=== PATIENT | female | born 1930 | race Caucasian/White ===

== ENCOUNTER 2019-06-28 09:00 | Inpatient (IN) | payer MEDICARE, BC ==
[2019-06-28 09:40] LABS: Basophils % (A) 0 %; Eosinophils # (A) 0.1 k/uL (0-0.7); Eosinophils % (A) 1 %; HCT 33.9 % (34.0-46.0); HGB 10.8 gm/dL (11.4-16.0); Hypochromasia Slight; Lymphocytes # (A) 0.5 k/uL (1.0-4.8); Lymphocytes % (A) 4 %; MCH 26.9 pg (25.0-35.0); MCHC 31.9 g/dL (31.0-37.0); MCV 84.2 fL (80.0-100.0); Mean Platelet Volume 7.2; Monocytes # (A) 0.4 k/uL (0-1.0); Monocytes % (A) 3 %; Neutrophils # (A) 11.6 k/uL (1.3-7.7); Neutrophils % (A) 91 %; Platelet Count 334 k/uL (150-450); RBC 4.03 m/uL (3.80-5.40); RDW 15.7 % (11.5-15.5); WBC 12.8 k/uL (3.8-10.6)
[2019-06-28 09:49] LABS: Albumin 4.1 g/dL (3.5-5.0); Calcium 8.7 mg/dL (8.4-10.2); Total Bilirubin 0.9 mg/dL (0.2-1.3); Total Protein 8.1 g/dL (6.3-8.2)
[2019-06-28] MEDS ORDERED: SODIUM CHLORIDE 0.9% 1,000 ML IV STA (10:00)
[2019-06-28] MEDS ORDERED: SODIUM CHLORIDE 0.9% 500 ML 500 ML IV STA (10:00)
--- NOTE | 2019-06-28 10:04 | ED ---
Fall HPI - General Chief Complaint: Fall Stated Complaint: fall Time Seen by Provider: 06/28/19 09:00 Source: patient, RN notes reviewed, old records reviewed Mode of arrival: EMS - History of Present Illness Initial Comments: This 88-year-old female was brought in by EMS for evaluation after a fall with complaints of left flank and back pain as well as some hip pain. She currently denies any other injuries head neck or extremity discomfort. She was brought in with a cervical collar in place as she had no head or neck injury to report. She does state that she felt dizzy and lost her balance and fell the floor but states she got up immediately up and back to bed but this morning she complains of the pain in the areas described. She was able ambulate. No fevers chills nausea vomiting sweats no dysuria hematuria of note she was found have a mildly elevated temperature upon arrival MD Complaint: fall, other - Related Data Home Medications Medication Instructions Recorded Confirmed Acetaminophen [Tylenol] 650 mg PO BID@0930,1900 06/28/19 06/28/19 Aspirin [[place] Aspirin EC] 81 mg PO DAILY@182906/28/19 06/28/19 Emlodipine 50mg 1 tab PO DAILY 06/28/19 06/28/19 Hydrochlorothiazide (Unknown) 1 tab PO DAILY 06/28/19 06/28/19 Imdur (Unknown) 1 tab PO DAILY 06/28/19 06/28/19 Levothyroxine Sodium 88 mcg PO DAILY 06/28/19 06/28/19 Mirabegron [Myrbetriq] 25 mg PO HS 06/28/19 06/28/19 Multivitamins, Thera [Multivitamin 1 tab PO DAILY@182906/28/19 06/28/19 (formulary)] Nebivolol HCl [Bystolic] 10 mg PO DAILY@182906/28/19 06/28/19 Omeprazole 40 mg PO DAILY@109906/28/19 06/28/19 Potassium Chloride [K-Tab ER] 10 meq PO DAILY@1100 06/28/19 06/28/19 Pravachol (Unknown) 1 tab PO DAILY 06/28/19 06/28/19 Proline (Unknown) 2 injection IM Q6M 06/28/19 06/28/19 Tylenol #3 (Unknown) 1 tab PO DAILY 06/28/19 06/28/19 Vitamin D 3 (Mg Unknown) 1 tab PO DAILY@1830 06/28/19 06/28/19 amLODIPine [Norvasc] 5 mg PO BID@1100,1900 06/28/19 06/28/19 hydrALAZINE HCL [Apresoline] 50 mg PO TID 06/28/19 06/28/19 rOPINIRole HCL [Requip] 1 mg PO DAILY@1100 06/28/19 06/28/19 rOPINIRole HCL [Requip] 2 mg PO HS 06/28/19 06/28/19 Allergies Allergy/AdvReac Type Severity Reaction Status Date / Time No Known Allergies Allergy Unverified 06/28/19 09:03 Review of Systems ROS Statement: Those systems with pertinent positive or pertinent negative responses have been documented in the HPI. ROS Other: All systems not noted in ROS Statement are negative. Past Medical History Past Medical History: Chest Pain / Angina, GERD/Reflux, Hypertension Additional Past Medical History / Comment(s): restless leg History of Any Multi-Drug Resistant Organisms: None Reported Past Surgical History: Appendectomy Past Psychological History: No Psychological Hx Reported Smoking Status: Never smoker Past Alcohol Use History: None Reported Past Drug Use History: None Reported General Exam - General Exam Comments Initial Comments: This is a well-developed well-nourished awake alert oriented history female with a [place] Coma Scale of 15 Limitations: no limitations General appearance: alert, in no apparent distress Head exam: Present: atraumatic, normocephalic, normal inspection Eye exam: Present: normal appearance, PERRL, EOMI. Absent: scleral icterus, conjunctival injection, periorbital swelling ENT exam: Present: mucous membranes dry Neck exam: Present: normal inspection. Absent: tenderness, meningismus, lymphadenopathy Respiratory exam: Present: normal lung sounds bilaterally. Absent: respiratory distress, wheezes, rales, rhonchi, stridor Cardiovascular Exam: Present: irregular rhythm, normal heart sounds. Absent: systolic murmur, diastolic murmur, rubs, gallop, clicks GI/Abdominal exam: Present: soft, normal bowel sounds. Absent: distended, tenderness, guarding, rebound, rigid Rectal exam: Present: deferred Extremities exam: Present: normal inspection, full ROM, tenderness (Some tenderness palpation over both hips no step-off crepitation no shortening or rotation.), normal capillary refill. Absent: pedal edema, joint swelling, calf tenderness Back exam: Present: normal inspection, full ROM, tenderness, paraspinal tenderness (Tenderness palpation over the paraspinous muscles (left to the mid and lower thoracic upper lumbar region. No definite spinous process tenderness.). Absent: CVA tenderness (R), CVA tenderness (L) Neurological exam: Present: alert, oriented X3, CN II-XII intact Psychiatric exam: Present: normal affect, normal mood Skin exam: Present: warm, dry, intact, normal color. Absent: rash Course Vital Signs 06/28/19 06/28/19 06/28/19 09:02 09:07 09:30 Temperature 100.3 F H Pulse Rate 90 92 93 Respiratory 18 38 H 56 H Rate Blood Pressure 150/64 150/64 O2 Sat by Pulse 92 L Oximetry 06/28/19 06/28/19 06/28/19 10:00 10:30 11:00 Temperature Pulse Rate 92 93 96 Respiratory 31 H 19 35 H Rate Blood Pressure 160/61 157/68 154/72 O2 Sat by Pulse 95 92 L 90 L Oximetry 06/28/19 06/28/19 06/28/19 11:30 11:32 11:42 Temperature Pulse Rate 98 96 99 Respiratory 34 H Rate Blood Pressure 153/78 O2 Sat by Pulse 86 L Oximetry 06/28/19 06/28/19 12:00 12:30 Temperature 101.0 F H Pulse Rate 101 H 100 Respiratory 36 H 36 H Rate Blood Pressure 169/59 152/76 O2 Sat by Pulse 86 L 89 L Oximetry - Reevaluation(s) Reevaluation #1: 06/28/19 11:17 Further information after family arrived the patient daughter states she's been having some difficulty with breathing lately she is a former smoker but no diagnosis of COPD. Reevaluation #2: 06/28/19 13:09 Was given a DuoNeb treatment due to some shortness of breath and diminished breath sounds occurred after initial evaluation she was feeling better Medical Decision Making - Medical Decision Making Patient is case was discussed with her and her daughter as well as with Dr. Chavez. Presentation is consistent with a lung mass as well as a fall, fever due to the findings a pneumonia is considered - Lab Data Result diagrams: 06/28/19 09:23 06/28/19 09:23 Lab Results 06/28/19 06/28/19 06/28/19 Range/Units 09:23 09:23 09:23 WBC 12.8 H (3.8-10.6) k/uL RBC 4.03 (3.80-5.40) m/uL Hgb 10.8 L (11.4-16.0) gm/dL Hct 33.9 L (34.0-46.0) % MCV 84.2 (80.0-100.0) fL MCH 26.9 (25.0-35.0) pg MCHC 31.9 (31.0-37.0) g/dL RDW 15.7 H (11.5-15.5) % Plt Count 334 (150-450) k/uL Neutrophils % 91 % Lymphocytes % 4 % Monocytes % 3 % Eosinophils % 1 % Basophils % 0 % Neutrophils # 11.6 H (1.3-7.7) k/uL Lymphocytes # 0.5 L (1.0-4.8) k/uL Monocytes # 0.4 (0-1.0) k/uL Eosinophils # 0.1 (0-0.7) k/uL Basophils # 0.0 (0-0.2) k/uL Hypochromasia Slight Sodium 135 L (137-145) mmol/L Potassium 4.0 (3.5-5.1) mmol/L Chloride 98 (98-107) mmol/L Carbon Dioxide 18 L (22-30) mmol/L Anion Gap 19 mmol/L BUN 30 H (7-17) mg/dL Creatinine 0.92 (0.52-1.04) mg/dL Est GFR (CKD-EPI)AfAm 65 (>60 ml/min/1.73 sqM) Est GFR (CKD-EPI)NonAf 56 (>60 ml/min/1.73 sqM) Glucose 126 H (74-99) mg/dL Plasma Lactic Acid Mele 1.4 (0.7-2.0) mmol/L Calcium 8.7 (8.4-10.2) mg/dL Magnesium 2.0 (1.6-2.3) mg/dL Total Bilirubin 0.9 (0.2-1.3) mg/dL AST 28 (14-36) U/L ALT 15 (9-52) U/L Alkaline Phosphatase 68 (38-126) U/L Creatine Kinase 201 H (30-135) U/L Total Protein 8.1 (6.3-8.2) g/dL Albumin 4.1 (3.5-5.0) g/dL Lipase 78 (23-300) U/L Urine Color Urine Appearance (Clear) Urine pH (5.0-8.0) Ur Specific [place] (1.001-1.035) Urine Protein (Negative) Urine Glucose (UA) (Negative) Urine Ketones (Negative) Urine Blood (Negative) Urine Nitrite (Negative) Urine Bilirubin (Negative) Urine Urobilinogen (<2.0) mg/dL Ur Leukocyte Esterase (Negative) Urine RBC (0-5) /hpf Amorphous Sediment (None) /hpf Urine Mucus (None) /hpf 06/28/19 Range/Units 10:23 WBC (3.8-10.6) k/uL RBC (3.80-5.40) m/uL Hgb (11.4-16.0) gm/dL Hct (34.0-46.0) % MCV (80.0-100.0) fL MCH (25.0-35.0) pg MCHC (31.0-37.0) g/dL RDW (11.5-15.5) % Plt Count (150-450) k/uL Neutrophils % % Lymphocytes % % Monocytes % % Eosinophils % % Basophils % % Neutrophils # (1.3-7.7) k/uL Lymphocytes # (1.0-4.8) k/uL Monocytes # (0-1.0) k/uL Eosinophils # (0-0.7) k/uL Basophils # (0-0.2) k/uL Hypochromasia Sodium (137-145) mmol/L Potassium (3.5-5.1) mmol/L Chloride (98-107) mmol/L Carbon Dioxide (22-30) mmol/L Anion Gap mmol/L BUN (7-17) mg/dL Creatinine (0.52-1.04) mg/dL Est GFR (CKD-EPI)AfAm (>60 ml/min/1.73 sqM) Est GFR (CKD-EPI)NonAf (>60 ml/min/1.73 sqM) Glucose (74-99) mg/dL Plasma Lactic Acid Mele (0.7-2.0) mmol/L Calcium (8.4-10.2) mg/dL Magnesium (1.6-2.3) mg/dL Total Bilirubin (0.2-1.3) mg/dL AST (14-36) U/L ALT (9-52) U/L Alkaline Phosphatase (38-126) U/L Creatine Kinase (30-135) U/L Total Protein (6.3-8.2) g/dL Albumin (3.5-5.0) g/dL Lipase (23-300) U/L Urine Color Yellow Urine Appearance Clear (Clear) Urine pH 5.5 (5.0-8.0) Ur Specific [place] 1.019 (1.001-1.035) Urine Protein 2+ H (Negative) Urine Glucose (UA) Negative (Negative) Urine Ketones 2+ H (Negative) Urine Blood Moderate H (Negative) Urine Nitrite Negative (Negative) Urine Bilirubin Negative (Negative) Urine Urobilinogen <2.0 (<2.0) mg/dL Ur Leukocyte Esterase Negative (Negative) Urine RBC 12 H (0-5) /hpf Amorphous Sediment Occasional H (None) /hpf Urine Mucus Rare H (None) /hpf - EKG Data -: EKG Interpreted by Ct EKG shows normal: sinus rhythm (Sinus rhythm first-degree AV block PVCs noted rate was 93To 40 [place] duration 86 QT since QTC 364/452) - Radiology Data Radiology results: report reviewed (Left lung mass), image reviewed Disposition Clinical Impression: Fall, Pneumonia, Lung mass, Dehydration, Bronchospasm, acute, Febrile illness, acute Disposition: ADMITTED IP TO THIS HOSP Condition: Fair Referrals: Sundeep Hauser MD [Primary Care Provider] - 1-2 days
--- NOTE | 2019-06-28 10:08 | XR ---
EXAMINATION TYPE: XR lumbosacral spine min 4V , 5 VIEWS DATE OF EXAM ORDERED: 06/28/2019 HISTORY: Pain following trauma. COMPARISON: None. FINDINGS: The bones are osteopenic, likely on the basis of osteoporosis. Vertebral body heights maintained. There is a minimal, degenerative spondylolisthesis of L4 and L5. A lignment is otherwise normal. No fractures are seen. There is mild, diffuse facet arthropathy. The pe dicles are intact. IMPRESSION: 1. NO ACUTE OSSEOUS LESION. 2. DEGENERATIVE CHANGE.
--- NOTE | 2019-06-28 10:09 | XR ---
EXAMINATION TYPE: XR Hip Bilateral and AP pelvis , 5 VIEWS DATE OF EXAM ORDERED: 06/28/2019 HISTORY: Pain. COMPARISON: None. FINDINGS: Osseous structures about the pelvis are unremarkable. There are degenerative changes prese nt in both hips. No fracture or dislocation is seen. There are phleboliths within the pelvis. IMPRESSION: 1. NO ACUTE OSSEOUS LESION. 2. DEGENERATIVE CHANGE.
--- NOTE | 2019-06-28 10:11 | XR ---
EXAMINATION TYPE: XR thoracic spine complete , 3 VIEWS DATE OF EXAM ORDERED: 06/28/2019 HISTORY: Pain following trauma. COMPARISON: None. FINDINGS: The bones are osteopenic. There is moderate dextroscoliosis. The upper thoracic spine is not well seen in the lateral projection. Throughout the visualized portio n spine no acute fractures seen. The pedicles appear intact. Paraspinal soft tissues appear normal. IMPRESSION: LIMITED STUDY DEMONSTRATING NO DEFINITE ABNORMALITY.
--- NOTE | 2019-06-28 10:12 | XR ---
EXAMINATION TYPE: XR chest 2V DATE OF EXAM: 06/28/2019 HISTORY: cough. REFERENCE: NONE. FINDINGS: There is a 6.1 cm masslike density in the left lateral chest. Heart size upper limits of no rmal. The right lung is clear. Pleural space are clear. IMPRESSION: 1. CARDIOMEGALY. 2. 6.1 CM MASSLIKE DENSITY ADJACENT TO THE LATERAL CHEST WALL ON THE LEFT. CHEST BE SUGGESTED ON A NO NEMERGENT BASIS.
[2019-06-28 10:43] LABS: Amorphous Sediment,Urine Occasional /hpf; Appearance,Urine Clear (Clear); Bilirubin,Urine Negative (Negative); Blood,Urine Moderate (Negative); Color,Urine Yellow; Glucose,Urine (UA) Negative (Negative); Ketones,Urine 2+ (Negative); Leukocyte Esterase,Urine Negative (Negative); Mucus,Urine Rare /hpf; Nitrite,Urine Negative (Negative); PH, Urine 5.5 (5.0-8.0); Protein,Urine 2+ (Negative); RBC,Urine 12 /hpf (0-5); Specific Gravity,Urine 1.019 (1.001-1.035); Urobilinogen,Urine <2.0 mg/dL (<2.0)
[2019-06-28] MEDS ORDERED: IPRATROPIUM-ALBUTEROL 3 ML NEB INHALATION STA (11:17)
[2019-06-28] MEDS ORDERED: cefTRIAXone IN SWFI 1,000 MG/10 ML SYRINGE IVP STA (12:31)
[2019-06-28] MEDS ORDERED: ACETAMINOPHEN TAB 325 MG TAB PO STA (12:54)
[2019-06-28] MEDS ORDERED: AZITHROMYCIN 500 MG in SODIUM CHLORIDE 0.9% 250 ML IVPB STA (13:09)
[2019-06-28] MEDS ORDERED: PNEUMONIA PROTOCOL UTILIZED 1 EACH MISC PO PRN (13:09)
[2019-06-28] MEDS ORDERED: [UNRECOGNIZED DRUG - OTHER] IM SCH (13:15)
--- NOTE | 2019-06-28 13:21 | ED ---
Medical Decision Making - Medical Decision Making Patient does meet sepsis criteria to 2 findings of temperature and other findings of her lactic acid is within normal limits. Focused exam demonstrates patient to be awake alert oriented 3 after the updraft she does have increased aeration with some rhonchi noted. No definitive palpable chest wall mass noted. Capillary refills less than 2 seconds her saturation is improved skin is warm and dry. - Lab Data Result diagrams: 06/28/19 09:23 06/28/19 09:23 Lab Results 06/28/19 06/28/19 06/28/19 Range/Units 09:23 09:23 09:23 WBC 12.8 H (3.8-10.6) k/uL RBC 4.03 (3.80-5.40) m/uL Hgb 10.8 L (11.4-16.0) gm/dL Hct 33.9 L (34.0-46.0) % MCV 84.2 (80.0-100.0) fL MCH 26.9 (25.0-35.0) pg MCHC 31.9 (31.0-37.0) g/dL RDW 15.7 H (11.5-15.5) % Plt Count 334 (150-450) k/uL Neutrophils % 91 % Lymphocytes % 4 % Monocytes % 3 % Eosinophils % 1 % Basophils % 0 % Neutrophils # 11.6 H (1.3-7.7) k/uL Lymphocytes # 0.5 L (1.0-4.8) k/uL Monocytes # 0.4 (0-1.0) k/uL Eosinophils # 0.1 (0-0.7) k/uL Basophils # 0.0 (0-0.2) k/uL Hypochromasia Slight Sodium 135 L (137-145) mmol/L Potassium 4.0 (3.5-5.1) mmol/L Chloride 98 (98-107) mmol/L Carbon Dioxide 18 L (22-30) mmol/L Anion Gap 19 mmol/L BUN 30 H (7-17) mg/dL Creatinine 0.92 (0.52-1.04) mg/dL Est GFR (CKD-EPI)AfAm 65 (>60 ml/min/1.73 sqM) Est GFR (CKD-EPI)NonAf 56 (>60 ml/min/1.73 sqM) Glucose 126 H (74-99) mg/dL Plasma Lactic Acid Mele 1.4 (0.7-2.0) mmol/L Calcium 8.7 (8.4-10.2) mg/dL Magnesium 2.0 (1.6-2.3) mg/dL Total Bilirubin 0.9 (0.2-1.3) mg/dL AST 28 (14-36) U/L ALT 15 (9-52) U/L Alkaline Phosphatase 68 (38-126) U/L Creatine Kinase 201 H (30-135) U/L Total Protein 8.1 (6.3-8.2) g/dL Albumin 4.1 (3.5-5.0) g/dL Lipase 78 (23-300) U/L Urine Color Urine Appearance (Clear) Urine pH (5.0-8.0) Ur Specific [place] (1.001-1.035) Urine Protein (Negative) Urine Glucose (UA) (Negative) Urine Ketones (Negative) Urine Blood (Negative) Urine Nitrite (Negative) Urine Bilirubin (Negative) Urine Urobilinogen (<2.0) mg/dL Ur Leukocyte Esterase (Negative) Urine RBC (0-5) /hpf Amorphous Sediment (None) /hpf Urine Mucus (None) /hpf 06/28/19 Range/Units 10:23 WBC (3.8-10.6) k/uL RBC (3.80-5.40) m/uL Hgb (11.4-16.0) gm/dL Hct (34.0-46.0) % MCV (80.0-100.0) fL MCH (25.0-35.0) pg MCHC (31.0-37.0) g/dL RDW (11.5-15.5) % Plt Count (150-450) k/uL Neutrophils % % Lymphocytes % % Monocytes % % Eosinophils % % Basophils % % Neutrophils # (1.3-7.7) k/uL Lymphocytes # (1.0-4.8) k/uL Monocytes # (0-1.0) k/uL Eosinophils # (0-0.7) k/uL Basophils # (0-0.2) k/uL Hypochromasia Sodium (137-145) mmol/L Potassium (3.5-5.1) mmol/L Chloride (98-107) mmol/L Carbon Dioxide (22-30) mmol/L Anion Gap mmol/L BUN (7-17) mg/dL Creatinine (0.52-1.04) mg/dL Est GFR (CKD-EPI)AfAm (>60 ml/min/1.73 sqM) Est GFR (CKD-EPI)NonAf (>60 ml/min/1.73 sqM) Glucose (74-99) mg/dL Plasma Lactic Acid Mele (0.7-2.0) mmol/L Calcium (8.4-10.2) mg/dL Magnesium (1.6-2.3) mg/dL Total Bilirubin (0.2-1.3) mg/dL AST (14-36) U/L ALT (9-52) U/L Alkaline Phosphatase (38-126) U/L Creatine Kinase (30-135) U/L Total Protein (6.3-8.2) g/dL Albumin (3.5-5.0) g/dL Lipase (23-300) U/L Urine Color Yellow Urine Appearance Clear (Clear) Urine pH 5.5 (5.0-8.0) Ur Specific [place] 1.019 (1.001-1.035) Urine Protein 2+ H (Negative) Urine Glucose (UA) Negative (Negative) Urine Ketones 2+ H (Negative) Urine Blood Moderate H (Negative) Urine Nitrite Negative (Negative) Urine Bilirubin Negative (Negative) Urine Urobilinogen <2.0 (<2.0) mg/dL Ur Leukocyte Esterase Negative (Negative) Urine RBC 12 H (0-5) /hpf Amorphous Sediment Occasional H (None) /hpf Urine Mucus Rare H (None) /hpf Critical Care Time Critical Care Time: Yes Critical Care Time: 35 minutes of critical care time which was initial presentation with history physical labs x-rays old chart review muscle reevaluation the patient discussed with the patient family discussion with the admitting physician admission orders documentation the above Disposition Clinical Impression: Fall, Pneumonia, Lung mass, Dehydration, Bronchospasm, acute, Febrile illness, acute, Sepsis Disposition: ADMITTED IP TO THIS HOSP Condition: Fair Referrals: Sundeep Hauser MD [Primary Care Provider] - 1-2 days
[2019-06-28] MEDS ORDERED: RX INFO: IV CONTRAST WAS GIVEN 1 EACH MISC MISCELLANE PRN (13:45)
[2019-06-28] MEDS ORDERED: LEVOFLOXACIN 750MG-D5W PMX 750 MG in DEXTROSE/WATER 1 150ML.BAG IVPB STA (13:47)
--- NOTE | 2019-06-28 14:46 | CT ---
EXAMINATION TYPE: CT chest w con DATE OF EXAM: 06/28/2019 COMPARISON: NONE HISTORY: Lung mass CT DLP: 191.1 mGycm. Automated Exposure Control for Dose Reduction was Utilized. TECHNIQUE: CT scan of the thorax is performed following with IV Contrast, patient injected with 80 m L of Isovue 300. FINDINGS: LUNGS: There is a left upper lobe consolidation extending into the lingula with vessels coursing thro ughout this masslike consolidation. This measures up to 7.2 x 4.5 cm. This is measured on series 201 image 26. This extends to the hilum. This is low-density in comparison to the adjacent atelectasis in the left lower lobe. Scattered areas of atelectasis are seen throughout the remainder the lungs. MEDIASTINUM: The heart is enlarged. No pericardial effusion. Mediastinal adenopathy is seen with an a orticopulmonary window lymph node measuring 9 mm, precarinal lymph node measuring 1.1 cm, and subcari nal lymph node measuring 1.2 cm on short axis. OTHER: There is a small hiatal hernia. There are multiple hypoattenuated lesions in the spleen with t he largest characterize as a simple cyst measuring 1.2 cm. Some of the other lesions are too small to accurately characterize. These hypoattenuation of the hepatic parenchyma limits evaluation for hepat ic masses and most commonly relates to hepatic steatosis. Mild multilevel degenerative changes of the spine are seen. IMPRESSION: Low-density masslike consolidation in the left upper lobe and lingula has vessels coursin g throughout unaffected and may simply represent lobar pneumonia however an underlying mass is certai nly possible and short-term follow-up after treatment is recommended. Alternatively bronchoscopy coul d be considered as this mass extends to the hilum. Mild mediastinal adenopathy may be reactive.
[2019-06-28 14:56] VITALS: BMI 25.4
[2019-06-28] MEDS: SODIUM CHLORIDE 0.9% 1,000 ML IV SCH (15:34)
[2019-06-28] MEDS: IPRATROPIUM-ALBUTEROL 3 ML NEB INHALATION SCH ×3 (15:49→23:58)
[2019-06-28] MEDS ORDERED: LEVOFLOXACIN 750MG-D5W PMX 750 MG in DEXTROSE/WATER 1 150ML.BAG IVPB SCH ×2 (16:00→21:00)
[2019-06-28] MEDS ORDERED: PIPERACILLIN-TAZOBACTAM 3.375 GM in SODIUM CHLORIDE 0.9% 100 ML IVPB SCH (16:00)
[2019-06-28] MEDS: hydrALAZINE HCL 50 MG TAB PO SCH ×2 (16:24→20:58)
--- NOTE | 2019-06-28 16:28 | P.HPIM ---
History of Present Illness H&P Date: 06/28/19 The patient is a 88-year-old female with a PMH of hypertension who presented to the ED after a fall at home. History supplemented by her daughter at the bedside. The patient notes that she was in her usual state of health when she woke up this morning and feels that she got out of her bed too quickly when she suddenly became weak and fell down on her buttocks. She denied losing consciousness or any head trauma. The patient immediately got back up and was able to ambulate. EMS was subsequently activated and the patient was brought to the ED. The daughter states that over the previous few days, she has noted that her mother has been having some shortness of breath along with cough productive of yellow-green phlegm. Patient underwent an extensive evaluation in the ED with x-rays which revealed no acute fractures. Chest CT revealed a masslike consolidation in the left upper lobe and lingula with malignancy not ruled out. EKG revealed a sinus rhythm with first-degree AV block and APC at 93 bpm. I evaluation revealed a leukocytosis of 12.8, hemoglobin 10.8, platelets 334, sodium 135, potassium 4.0, BUN 30, creatinine 0.92, and CK 201. Patient was also noted to be febrile with T-max of 101. The patient was given IV antibiotics and was subsequently admitted to the medicine service for community acquired pneumonia. Review of Systems Pertinent positives and negatives as discussed in HPI, a complete review of systems was performed and all other systems are negative. Past Medical History Past Medical History: Chest Pain / Angina, GERD/Reflux, GI Bleed, Hypertension Additional Past Medical History / Comment(s): restless leg History of Any Multi-Drug Resistant Organisms: None Reported Past Surgical History: Appendectomy Past Anesthesia/Blood Transfusion Reactions: No Reported Reaction Past Psychological History: No Psychological Hx Reported Smoking Status: Never smoker Past Alcohol Use History: None Reported Past Drug Use History: None Reported - Past Family History Mother Family Medical History: Diabetes Mellitus Sister(s) Family Medical History: Cancer Medications and Allergies Home Medications Medication Instructions Recorded Confirmed Type Acetaminophen [Tylenol] 650 mg PO BID@0930,1900 06/28/19 06/28/19 History Aspirin [[place] Aspirin EC] 81 mg PO DAILY@1830 06/28/19 06/28/19 History Emlodipine 50mg 1 tab PO DAILY 06/28/19 06/28/19 History Hydrochlorothiazide (Unknown) 1 tab PO DAILY 06/28/19 06/28/19 History Imdur (Unknown) 1 tab PO DAILY 06/28/19 06/28/19 History Levothyroxine Sodium 88 mcg PO DAILY 06/28/19 06/28/19 History Mirabegron [Myrbetriq] 25 mg PO HS 06/28/19 06/28/19 History Multivitamins, Thera [Multivitamin 1 tab PO DAILY@1830 06/28/19 06/28/19 History (formulary)] Nebivolol HCl [Bystolic] 10 mg PO DAILY@1830 06/28/19 06/28/19 History Omeprazole 40 mg PO DAILY@1100 06/28/19 06/28/19 History Potassium Chloride [K-Tab ER] 10 meq PO DAILY@1100 06/28/19 06/28/19 History Pravachol (Unknown) 1 tab PO DAILY 06/28/19 06/28/19 History Proline (Unknown) 2 injection IM Q6M 06/28/19 06/28/19 History Tylenol #3 (Unknown) 1 tab PO DAILY 06/28/19 06/28/19 History Vitamin D 3 (Mg Unknown) 1 tab PO DAILY@1830 06/28/19 06/28/19 History amLODIPine [Norvasc] 5 mg PO BID@1100,1900 06/28/19 06/28/19 History hydrALAZINE HCL [Apresoline] 50 mg PO TID 06/28/19 06/28/19 History rOPINIRole HCL [Requip] 1 mg PO DAILY@1100 06/28/19 06/28/19 History rOPINIRole HCL [Requip] 2 mg PO HS 06/28/19 06/28/19 History Allergies Allergy/AdvReac Type Severity Reaction Status Date / Time No Known Allergies Allergy Unverified 06/28/19 09:03 Physical Exam Vitals: Vital Signs Temp Pulse Pulse Resp BP BP Pulse Ox 06/28/19 15:52 95 06/28/19 15:51 71 06/28/19 15:17 22 06/28/19 14:28 99.2 F 90 22 134/71 92 L 06/28/19 14:25 99.7 F H 93 23 157/64 92 L 06/28/19 14:06 99.7 F H 93 23 157/64 92 L 06/28/19 13:30 93 23 157/64 88 L 06/28/19 13:00 98 22 161/59 88 L 06/28/19 12:30 101.0 F H 100 36 H 152/76 89 L 06/28/19 12:00 101 H 36 H 169/59 86 L 06/28/19 11:42 99 06/28/19 11:32 96 06/28/19 11:30 98 34 H 153/78 86 L 06/28/19 11:00 96 35 H 154/72 90 L 06/28/19 10:30 93 19 157/68 92 L 06/28/19 10:00 92 31 H 160/61 95 06/28/19 09:30 93 56 H 150/64 92 L 06/28/19 09:07 92 38 H 06/28/19 09:02 100.3 F H 90 18 150/64 Intake and Output 06/28/19 06/28/19 06/28/19 06:59 14:59 22:59 Other: Weight 61.235 kg General: Somewhat Ill-appearing female, in mild respiratory distress, appears at stated age, normal weight Derm: no unusual rashes/lesions no unusual ecchymoses, warm, dry Head: atraumatic, normocephalic, symmetric Eyes: EOMI, no lid lag, anicteric sclera, pupils equal round reactive to light ENT: Nose and ears atraumatic, no thrush, no pharyngeal erythema Neck: No thyromegaly, no cervical lymphadenopathy, trachea midline, supple Mouth: no lip lesion, mucus membranes moist Cardiovascular: S1S2 reg, no murmur, positive posterior tibial pulse bilateral, no edema, capillary refill less than 2 seconds Lungs: Scattered ronchi, no accessory muscle use Abdominal: soft, nontender to palpation, no guarding, no appreciable organomegaly, normal bowel sounds Ext: no gross muscle atrophy, muscle strength 5 out of 5 in all 4 extremities grossly, no contractures, Neuro: CN II-XI grossly intact, light touch intact all 4 extremities, finger to nose within normal limits, Psych: Alert, oriented, appropriate affect Results CBC & Chem 7: 06/28/19 09:23 06/28/19 09:23 Labs: Abnormal Lab Results - Last 24 Hours (Table) 06/28/19 06/28/19 06/28/19 Range/Units 09:23 09:23 10:23 WBC 12.8 H (3.8-10.6) k/uL Hgb 10.8 L (11.4-16.0) gm/dL Hct 33.9 L (34.0-46.0) % RDW 15.7 H (11.5-15.5) % Neutrophils # 11.6 H (1.3-7.7) k/uL Lymphocytes # 0.5 L (1.0-4.8) k/uL Sodium 135 L (137-145) mmol/L Carbon Dioxide 18 L (22-30) mmol/L BUN 30 H (7-17) mg/dL Glucose 126 H (74-99) mg/dL Creatine Kinase 201 H (30-135) U/L Urine Protein 2+ H (Negative) Urine Ketones 2+ H (Negative) Urine Blood Moderate H (Negative) Urine RBC 12 H (0-5) /hpf Amorphous Sediment Occasional H (None) /hpf Urine Mucus Rare H (None) /hpf Thrombosis Risk Factor Assmnt - Choose All That Apply Any of the Below Risk Factors Present?: No Other Risk Factors: No Each Risk Factor Represents 3 Points: Age 75 years or older Other congenital or acquired thrombophilia - If yes, enter type in comment: No Thrombosis Risk Factor Assessment Total Risk Factor Score: 3 Thrombosis Risk Factor Assessment Level: Very Low Risk Assessment and Plan Plan: Sepsis secondary to community acquired pneumonia -Continue with IV antibiotics -IV fluids -Supplemental oxygen Dehydration with Prerenal LUANNE -Continue with IV fluids -Trend CK Normocytic anemia -Obtain iron panel, B12, folate Hypertension -Continue with home meds DVT prophylaxis -Heparin The patient is admitted with an anticipated greater than 2 midnight stay for evaluation of sepsis secondary to community acquired pneumonia CODE STATUS:Full Code Discussed with: Patient, Daughter Anticipated discharge date: 2-[address]: Home A total of 45 minutes was spent on the care of this complex patient more than 50% of the time was spent in counseling and care coordination.
[2019-06-28] MEDS: ACETAMINOPHEN TAB 325 MG TAB PO SCH (17:59)
[2019-06-28] MEDS: NEBIVOLOL 5 MG TAB PO SCH (18:00)
[2019-06-28] MEDS: ASPIRIN 81 MG PO SCH (18:00)
[2019-06-28] MEDS: MULTIVITAMINS, THERA 1 EACH TAB PO SCH (18:00)
[2019-06-28] MEDS: amLODIPine 5 MG TAB PO SCH (18:01)
[2019-06-28] MEDS: NON FORMULARY DRUG (Mirabegron [Myrbetriq] 25 MG) PO SCH (21:00)
[2019-06-29] MEDS: HEPARIN SODIUM,PORCINE 5,000 UNIT/ML 1 ML VIAL SQ SCH ×4 (00:12→23:39)
[2019-06-29] MEDS: IPRATROPIUM-ALBUTEROL 3 ML NEB INHALATION SCH ×7 (00:39→23:12)
[2019-06-29] MEDS: SODIUM CHLORIDE 0.9% 1,000 ML IV SCH ×2 (04:58→12:59)
[2019-06-29] MEDS: LEVOTHYROXINE 88 MCG TAB PO SCH (06:39)
[2019-06-29] MEDS: ACETAMINOPHEN TAB 325 MG TAB PO SCH ×2 (06:48→18:38)
[2019-06-29] MEDS ORDERED: ACETAMINOPHEN TAB 325 MG TAB PO PRN (07:05)
[2019-06-29] MEDS ORDERED: VANCOMYCIN IV PER PHARMACY 1 EACH MISC MISCELLANE PRN (07:07)
[2019-06-29 07:47] LABS: Basophils % (A) 0 %; Eosinophils % (A) 0 %; HCT 29.7 % (34.0-46.0); HGB 9.4 gm/dL (11.4-16.0); Hypochromasia Slight; Lymphocytes # (A) 0.3 k/uL (1.0-4.8); Lymphocytes % (A) 4 %; MCH 26.7 pg (25.0-35.0); MCHC 31.8 g/dL (31.0-37.0); Mean Platelet Volume 7.1; Monocytes # (A) 0.2 k/uL (0-1.0); Monocytes % (A) 3 %; Neutrophils % (A) 91 %; Platelet Count 247 k/uL (150-450); RBC 3.53 m/uL (3.80-5.40); RDW 15.4 % (11.5-15.5); WBC 7.6 k/uL (3.8-10.6)
[2019-06-29 07:59] LABS: African American GFR (CKD) >90 (>60 ml/min/1.73 sqM); Anion Gap 12 mmol/L; Blood Urea Nitrogen 17 mg/dL (7-17); Calcium 7.6 mg/dL (8.4-10.2); Carbon Dioxide 20 mmol/L (22-30); Chloride 102 mmol/L (98-107); Creatine Kinase 260 U/L (30-135); Glucose 148 mg/dL (74-99); Non-African American GFR(CKD) 79 (>60 ml/min/1.73 sqM); Potassium 3.2 mmol/L (3.5-5.1); Sodium 134 mmol/L (137-145)
[2019-06-29] MEDS ORDERED: VANCOMYCIN 1,250 MG in SODIUM CHLORIDE 0.9% 250 ML IVPB ONE (08:00)
--- NOTE | 2019-06-29 08:04 | XR ---
EXAMINATION TYPE: XR chest 2V DATE OF EXAM: 06/29/2019 COMPARISON: Chest x-ray and CT chest from yesterday HISTORY: Pneumonia, progress study. TECHNIQUE: Frontal and lateral views of the chest are obtained. FINDINGS: There is persistent lateral left midlung masslike consolidation. There is worsening left b asilar airspace opacity. Tiny bilateral pleural effusions are present seen best on lateral view. Righ t lung remains clear. The cardiac silhouette size remains enlarged with atherosclerotic aorta. The osseous structures are demineralized. Underlying scoliotic curvature is present. IMPRESSION: Cardiomegaly with persistent lateral left midlung masslike consolidation and worsening le ft basilar acute infiltrate and/or atelectasis.
[2019-06-29] MEDS: PIPERACILLIN-TAZOBACTAM 3.375 GM in SODIUM CHLORIDE 0.9% 100 ML IVPB SCH ×3 (08:38→23:39)
[2019-06-29] MEDS: hydrALAZINE HCL 50 MG TAB PO SCH ×3 (08:38→22:29)
[2019-06-29] MEDS: PANTOPRAZOLE 40 MG TABLET PO SCH (08:38)
[2019-06-29] MEDS: amLODIPine 5 MG TAB PO SCH (08:51)
[2019-06-29] MEDS ORDERED: Acetaminophen-Codeine 300-30mg TAB PO PRN (09:00)
[2019-06-29] MEDS ORDERED: [UNRECOGNIZED DRUG - OTHER] PO SCH (09:00)
[2019-06-29] MEDS ORDERED: POTASSIUM CITRATE 10 MEQ TABLET.ER PO SCH (11:00)
[2019-06-29] MEDS ORDERED: POTASSIUM CHLORIDE ER 20 MEQ TAB.ER PO STA (12:36)
[2019-06-29] MEDS ORDERED: AZITHROMYCIN 500 MG TAB PO SCH (13:11)
[2019-06-29] MEDS ORDERED: amLODIPine 5 MG TAB PO SCH (13:22)
[2019-06-29] MEDS ORDERED: POTASSIUM CHLORIDE ER 10 MEQ TAB.ER.PRT PO SCH (13:28)
[2019-06-29] MEDS: ISOSORBIDE MONONITRATE ER 30 MG TAB.ER.24H PO SCH (13:29)
[2019-06-29] MEDS: HYDROCHLOROTHIAZIDE 12.5 MG CAP PO SCH (13:29)
--- NOTE | 2019-06-29 14:28 | P.PN ---
Subjective Progress Note Date: 06/29/19 The patient is a 88-year-old female with a PMH of hypertension who presented to the ED after a fall at home. History was supplemented by her daughter at the bedside. The patient notes that she was in her usual state of health when she woke up on the morning of presentation, felt that she got out of her bed too quickly when she suddenly became weak and fell down on her buttocks. She denied losing consciousness or any head trauma. The patient immediately got back up and was able to ambulate. EMS was subsequently activated and the patient was brought to the ED. The daughter stated that over the previous few days, she had noted that her mother had been having some shortness of breath along with cough productive of yellow-green phlegm. Patient underwent an extensive evaluation in the ED with x-rays which revealed no acute fractures. Chest CT revealed a masslike consolidation in the left upper lobe and lingula with malignancy not ruled out. EKG revealed a sinus rhythm with first-degree AV block and APC at 93 bpm. I evaluation revealed a leukocytosis of 12.8, hemoglobin 10.8, platelets 334, sodium 135, potassium 4.0, BUN 30, creatinine 0.92, and CK 201. Patient was also noted to be febrile with T-max of 101. The patient was given IV antibiotics and was subsequently admitted to the medicine service for lobar pneumonia, with plan to obtain f/u CT for further evaluation of mass. The patient was initially given Zosyn, Levaquin, Azithromycin, and Ceftriaxone in the ED. She was switched to Levaquin monotherapy upon admission. The patient's condition however worsened on 06/29/19. She was noted to be febrile in the am. Repeat CXR revealed worsening of the consolidation. Serum lactate was 1.3, from 1.4 on admission. Pulmonary and ID was consulted and the patient was placed on Vancomycin and Zosyn. The patient was seen and examined at the bedside @ 0710, 1000, and 1400. The pat ient was initially febrile and uncomfortable. The patient's nasal canula oxygen was increased and she was then transferred to the Selective unit. The patient then subsequently developed ronchi and her oxygen requirements increased. A repeat CXR is ordered. Discussed the patient's goals of care again with the daughter at the bedside. She noted that she is going to follow her mother's most recent wishes and maintain the patient as a Full-Code. Discussed the possibility of needing mechanical ventilation if patient's breathing continues to worsen. Discussed the case with Pulmonary. Objective - Vital Signs Vital signs: Vital Signs Temp 99.6 F 06/29/19 07:31 Pulse 80 06/29/19 11:49 Resp 16 06/29/19 07:31 BP 114/66 06/29/19 07:31 Pulse Ox 95 06/29/19 07:31 Intake & Output 06/28/19 06/29/19 06/29/19 18:59 06:59 18:59 Intake Total 200 Balance 200 Weight 61.235 kg Intake: Oral 200 Other: Voiding Method Diaper Diaper # Voids 1 1 # Bowel Movements 1 - Exam General: Ill appearing female, in mild-moderate resp distress, appears stated age, normal weight HEENT: NC/AT, anicteric sclerae, moist conjunctiva, no lid-lag, PERRLA Cardiovascular: S1/S2 wnl, no murmurs, rubs, or gallops Lungs: Diffuse ronchi, no rales, no accessory muscle use Abdominal: Soft, non-tender, non-distended, no guarding, rebound, or rigidity Skin: Warm, dry Extremities: No edema or contractures Psychiatric: Alert and oriented to person and place only, appropriate affect Neuro: CN II-XII grossly intact, no focal deficits, moving all extremities - Labs CBC & Chem 7: 06/29/19 07:16 06/29/19 07:06 Labs: Abnormal Lab Results - Last 24 Hours (Table) 06/29/19 06/29/19 Range/Units 07:06 07:16 RBC 3.53 L (3.80-5.40) m/uL Hgb 9.4 L (11.4-16.0) gm/dL Hct 29.7 L (34.0-46.0) % Lymphocytes # 0.3 L (1.0-4.8) k/uL Sodium 134 L (137-145) mmol/L Potassium 3.2 L (3.5-5.1) mmol/L Carbon Dioxide 20 L (22-30) mmol/L Glucose 148 H (74-99) mg/dL Calcium 7.6 L (8.4-10.2) mg/dL Creatine Kinase 260 H (30-135) U/L Microbiology - Last 24 Hours (Table) 06/28/19 09:10 Blood Culture - Preliminary Blood No Growth after 24 hours Assessment and Plan Plan: Sepsis secondary to community acquired pneumonia vs possibly post-obstructive pneumonia in setting of underlying mass -Abx coverage expanded to Vancomycin and Zosyn -IV fluids -Place patient on Airvo for oxygenation -Discussed case w/ Dr Drew. He recommended that patient may benefit from Bronchoscopy at a later date. Recommended to continue to monitor resp status while on Airvo -F/u blood cultures -Send sputum cultures Hypokalemia -Replaced -Monitor for now Dehydration with Prerenal LUANNE, resolved Normocytic anemia -Pending workup Hypertension -Hold meds in setting of worsening sepsis DVT prophylaxis -Heparin Discussed with: Patient, Daughter Anticipated discharge date: 3-[address]: Home A total of 60 minutes was spent on the care of this complex patient more than 50% of the time was spent in counseling and care coordination.
[2019-06-29] MEDS: NEBIVOLOL 5 MG TAB PO SCH (16:18)
--- NOTE | 2019-06-29 16:20 | P.CONS ---
History of Present Illness - Reason for Consult Consult date: 06/29/19 Pneumonia Requesting physician: Thelma Chavez - Chief Complaint fall out of the bed x 1 day - History of Present Illness Patient is 82 female who has been brought into the after pending the patient fell out of her bed and was complaining of some left flank and back pain, the patient says she felt dizzy and lost her balance and fell to the floor she says she cut up immediately and back into the bed but then started having this pain for which EMS was called in and the patient was brought into the ER on arrival to the ER the patient did have blood sugar 100.3 subsequently spike a fever of 10 1F patient have mild tachycardia of 90, patient did have extensive radiological workup including a chest x-ray we did shows car to megaly was 6.1 cm mass like density adjacent to the lateral chest wall on the left, Subsequently did have this chest CT we did shows low-density mass like consolidation in the left upper lobe and lingula with concern for her pneumonia underlying mass cannot be entirely excluded, patient did have blood and sputum cultures obtained which are currently pending she was initially given Rocephin and Zithromax subsequent started on Zosyn and infectious disease was consulted for further recommendation regarding antibiotic therapy. Patient main symptom remain to be increasing shortness of breath, even at rest the patient did have a cough. Minimal sputum production not sure about, patient denies having any chest pain no nausea no vomiting or choking on the food no abdominal pain and no diarrhea Review of Systems Positive point has been mentioned in the HPI rest of the systems are negative Past Medical History Past Medical History: Chest Pain / Angina, GERD/Reflux, GI Bleed, Hypertension Additional Past Medical History / Comment(s): restless leg History of Any Multi-Drug Resistant Organisms: None Reported Past Surgical History: Appendectomy Past Anesthesia/Blood Transfusion Reactions: No Reported Reaction Past Psychological History: No Psychological Hx Reported Smoking Status: Never smoker Past Alcohol Use History: None Reported Past Drug Use History: None Reported - Past Family History Mother Family Medical History: Diabetes Mellitus Sister(s) Family Medical History: Cancer Medications and Allergies Home Medications Medication Instructions Recorded Confirmed Type Acetaminophen [Tylenol] 650 mg PO BID@0930,1900 06/28/19 06/28/19 History Aspirin [[place] Aspirin EC] 81 mg PO DAILY@1830 06/28/19 06/28/19 History Levothyroxine Sodium 88 mcg PO DAILY 06/28/19 06/28/19 History Mirabegron [Myrbetriq] 25 mg PO HS 06/28/19 06/28/19 History Multivitamins, Thera [Multivitamin 1 tab PO DAILY@1830 06/28/19 06/28/19 History (formulary)] Nebivolol HCl [Bystolic] 10 mg PO DAILY@1830 06/28/19 06/28/19 History Omeprazole 40 mg PO DAILY@1100 06/28/19 06/28/19 History Potassium Chloride [K-Tab ER] 10 meq PO DAILY@1100 06/28/19 06/28/19 History hydrALAZINE HCL [Apresoline] 50 mg PO TID 06/28/19 06/28/19 History rOPINIRole HCL [Requip] 1 mg PO DAILY@1100 06/28/19 06/28/19 History rOPINIRole HCL [Requip] 2 mg PO HS 06/28/19 06/28/19 History Acetaminophen-Codeine 300-30mg 1 tab PO BID PRN 06/29/19 06/29/19 History [Tylenol w/codeine #3] Cholecalciferol [Vitamin D3 (25 1,000 units PO DAILY 06/29/19 06/29/19 History Mcg = 1000 Iu)] Hydrochlorothiazide 12.5 mg PO DAILY 06/29/19 06/29/19 History Isosorbide Mononitrate ER [Imdur] 30 mg PO DAILY 06/29/19 06/29/19 History Pravastatin Sodium [Pravachol] 20 mg PO DAILY 06/29/19 06/29/19 History amLODIPine [Norvasc] 5 mg PO DAILY 06/29/19 06/29/19 History Allergies Allergy/AdvReac Type Severity Reaction Status Date / Time No Known Allergies Allergy Unverified 06/28/19 09:03 Physical Exam Vitals: Vital Signs Temp Pulse Pulse Resp BP Pulse Ox 06/29/19 13:08 96 20 159/70 88 L 06/29/19 11:49 80 06/29/19 11:33 84 06/29/19 07:49 82 06/29/19 07:38 80 06/29/19 07:31 99.6 F 80 16 114/66 95 06/29/19 04:30 78 06/29/19 04:20 77 95 06/29/19 01:13 93 L 06/29/19 01:11 87 06/29/19 00:40 77 90 L 06/29/19 00:21 99.2 F 79 16 121/68 92 L 06/28/19 19:55 90 06/28/19 19:47 88 06/28/19 19:26 98.1 F 80 15 109/61 92 L 06/28/19 17:58 97.8 F 94 22 145/80 95 06/28/19 15:52 95 06/28/19 15:51 71 06/28/19 15:17 22 Intake and Output 06/28/19 06/29/19 06/29/19 22:59 06:59 14:59 Other: Voiding Method Diaper Diaper # Voids 1 1 1 # Bowel Movements 1 0 GENERAL DESCRIPTION: Elderly female lying in bed, no distress. No tachypnea or accessory muscle of respiration use. HEENT: Shows Pallor , no scleral icterus. Oral mucous membrane is dry. No pharyngeal erythema or thrush NECK: Trachea central, no thyromegaly. LUNGS: Unlabored breathing. Decreased this from the base. No wheeze or crackle. HEART: S1, S2, regular rate and rhythm. No loud murmur ABDOMEN: Soft, no tenderness , guarding or rigidity, no organomegaly EXTREMITIES: No edema of feet. SKIN: No rash, no masses palpable. NEUROLOGICAL: The patient is awake, alert, oriented x3, mood and affect normal. Results CBC & Chem 7: 06/29/19 07:16 06/29/19 07:06 Labs: Abnormal Lab Results - Last 24 Hours (Table) 06/29/19 06/29/19 Range/Units 07:06 07:16 RBC 3.53 L (3.80-5.40) m/uL Hgb 9.4 L (11.4-16.0) gm/dL Hct 29.7 L (34.0-46.0) % Lymphocytes # 0.3 L (1.0-4.8) k/uL Sodium 134 L (137-145) mmol/L Potassium 3.2 L (3.5-5.1) mmol/L Carbon Dioxide 20 L (22-30) mmol/L Glucose 148 H (74-99) mg/dL Calcium 7.6 L (8.4-10.2) mg/dL Creatine Kinase 260 H (30-135) U/L Microbiology - Last 24 Hours (Table) 06/28/19 09:10 Blood Culture - Preliminary Blood No Growth after 24 hours Assessment and Plan Assessment: 1-patient presented to the hospital with sepsis in this patient who did have a fever while tachycardia elevated white count source is likely left-sided pneumonia with a question of possible community-acquired however in view of the future possible malignancy with secondary postobstructive pneumonia cannot be entirely excluded will need to cover for both community-acquired As well as gram-negative pathogen (1) Pneumonia Current Visit: Yes Status: Acute Code(s): J18.9 - PNEUMONIA, UNSPECIFIED ORGANISM SNOMED Code(s): 978467836 (2) Sepsis Current Visit: Yes Status: Acute Code(s): A41.9 - SEPSIS, UNSPECIFIED ORGANISM SNOMED Code(s): 86914184 Plan: 1-Zosyn 3.375 g every 8 hour 2-gentle IV fluid We will follow on clinical condition and cultures to further adjust medication if needed Thank you for this consultation will follow this patient with you Time with Patient: Greater than 30
[2019-06-29 16:21] LABS: Ferritin 176.2 ng/mL (10.0-291.0)
--- NOTE | 2019-06-29 16:24 | CONS ---
CONSULTATION PULMONARY/CRITICAL CARE CONSULTATION: DATE OF SERVICE: 06/29/2019 This is an 88-year-old female who was brought into the emergency room by EMS. She apparently fell out of bed. She states that she apparently was trying to get out of bed to go use the bathroom. She complained of left flank and back pain as well as some hip pain. She apparently denied any other injuries, including head injuries or extremity injuries. The patient also complained of some chest congestion, cough and some phlegm production. The patient states that she has had chills as well. We were consulted because the chest x-ray showed significant consolidation in the left lung on chest x-ray. It appears to be pneumonia but could also be a mass. The patient is essentially a lifelong nonsmoker; maybe smoked 1 or 2 cigarettes when she was a teenager. The patient does admit to, as I mentioned, shortness of breath, cough, some phlegm production and some chills. She apparently was found to have an elevated temperature upon arrival to the emergency room. More recently, she was transferred up to the third floor, [address] [place] [address], because of increasing respiratory difficulty. We just saw her for evaluation. We looked at her chest x-ray. We also looked at her CT scan. MEDICATIONS: Her home medications are reviewed. They include: 1. Tylenol. 2. Baby aspirin. 3. Amlodipine. 4. Hydrochlorothiazide. 5. Imdur. 6. Levothyroxine. 7. Myrbetriq. 8. Multiple vitamins. 9. Bystolic. 10.Omeprazole. 11.Potassium tablets. 12.Pravachol. 13.Prolia injection every 6 months. 14.Tylenol Number 3. 15.Vitamin D3. 16.Hydralazine. 17.Requip. ALLERGIES: DENIED. MEDICAL HISTORY: Medical history includes: 1. Angina pectoris. 2. Gastroesophageal reflux disease. 3. Hypertension. 4. Hyperlipidemia. 5. Restless legs syndrome. 6. Hypothyroidism. 7. Urinary incontinence. SURGICAL HISTORY: Surgical history includes appendectomy. SOCIAL HISTORY: Positive for essentially being a lifelong nonsmoker. Denies any alcohol use. No illicit drug use. FAMILY HISTORY: Unremarkable. She states that her parents were relatively healthy. She is a reasonably good historian. REVIEW OF SYSTEMS: CONSTITUTIONAL: Chills. NEUROLOGIC: Negative. HEENT: Negative. CARDIOVASCULAR: Negative. PULMONARY: Shortness of breath, cough, some phlegm production. GI: Negative. : Negative. RHEUMATOLOGIC: Negative. IMMUNOLOGIC: Negative. ENDOCRINOLOGIC: Negative. DERMATOLOGIC: Negative. PHYSICAL EXAMINATION: VITAL SIGNS: Current vital signs are reviewed. Temperature is about 100 degrees. Heart rate is 80, respiratory rate 20, blood pressure 159/70, mean 99, and saturations are 88% on 15 L high flow. She appears to have some very mild shortness of breath. A bit of conversational dyspnea. She states that her breathing is "fine." HEENT: HEENT examination is grossly unremarkable. Nasal oxygen in place. NECK: Supple. Full range of motion. No adenopathy. Neck veins are flat. CARDIOVASCULAR: Cardiovascular examination reveals regular rhythm and rate. Heart rate about 85 to 90 beats per minute. S1, S2 normal. LUNGS: Lungs reveal some coarse bilateral rhonchi. Most of the rhonchi are left- sided. No wheezes or crackles. Breath sounds are diminished. ABDOMEN: Soft. Bowel sounds are heard. EXTREMITIES: Intact. No cyanosis, clubbing or edema. SKIN: Without rash. NEUROLOGIC: Neurologic examination is brief but nonfocal. She does appear to have a tremor. LAB DATA/IMAGING: Reviewed. White count 7.6, hemoglobin 9.4, hematocrit 29.7, platelet count 347,000. Sodium 134, potassium 3.2, chloride 102, CO2 20. Anion gap is 12. BUN and creatinine were 17 and 0.67. Urine yellow and clear; 2+ protein, 2+ ketones, moderate blood. Nitrite was negative. Leukocyte esterase was negative. Twelve RBCs, rare urine mucus. Chest x-ray shows some consolidative changes in the left lung. In the area on the left side there is infiltrate. The more recent chest x-ray shows persistent lateral left mid lung masslike consolidation with worsening infiltrate and atelectasis. The CT scan suggests the possibility of pneumonia versus mass. Microbiology thus far is negative. CURRENT MEDICATIONS: Current medications include: 1. Azithromycin. 2. Levaquin. 3. Zosyn. 4. Vancomycin. 5. Nebulizer treatments. ASSESSMENT: 1. Masslike infiltrate versus tumor, left mid lung. 2. Rule out left-sided pneumonia. 3. History of hypertension. 4. Hypothyroidism. 5. History of urinary incontinence. 6. History of gastroesophageal reflux disease. 7. History of hyperlipidemia. 8. History of angina pectoris. 9. Restless legs syndrome. PLAN: The patient's medications are appropriate. She is on good antibiotics. Will await culture data. We are aware of the patient. Should the patient have worsening respiratory status, we may need to move her up to the ICU. If her chest x-ray does not improve, we may consider bronchoscopy. MAUREEN / DONNA: [id number] / MTDD
[2019-06-29] MEDS: ASPIRIN 81 MG PO SCH (16:27)
[2019-06-29] MEDS: MULTIVITAMINS, THERA 1 EACH TAB PO SCH (16:27)
[2019-06-29] MEDS: PRAVASTATIN SODIUM 20 MG TAB PO SCH (16:27)
[2019-06-29 16:28] LABS: Folate, Serum 20.4 ng/mL; Iron Saturation 1.65 (12.00-45.00)
--- NOTE | 2019-06-29 17:19 | XR ---
EXAMINATION: XR chest 1V portable DATE AND TIME: 06/29/2019 4:49 PM CLINICAL INDICATION: PHH; pneumonia TECHNIQUE: AP portable upright COMPARISON: 06/29/2019 chest radiograph at 6:43 AM FINDINGS: LEFT HEMITHORAX: The near whiteout of the left hemithorax is redemonstrated, secondary to dense conso lidation throughout the left upper, mid and lower lung zones - with only the apex of the left upper l mayra zone inflated currently. Suspect left pleural effusion. There is no pneumothorax. RIGHT HEMITHORAX: Mild right infrahilar ill-defined added opacity noted, the vast bulk of the right l mayra parenchyma is clear and well expanded. The right pleural space remains negative. IMPRESSION: Overall similar lung inflation pattern and radiographic abnormalities when compared to the prior stud y at 6:43 AM today.
[2019-06-29] MEDS: NON FORMULARY DRUG (Mirabegron [Myrbetriq] 25 MG) PO SCH (20:40)
[2019-06-29] MEDS ORDERED: FUROSEMIDE 10 MG/ML 4 ML VIAL IV STA (21:53)
[2019-06-29] MEDS ORDERED: ALPRAZolam 0.25 MG TAB PO STA (22:10)
--- NOTE | 2019-06-29 22:13 | P.PN ---
Progress Note - Text Progress Note Date: 06/29/19 patient seen at bedside for increased work of breathing and hypoxemia, despite high flow nasal cannula will attempt BIPAP, and lasix, patient lungs breath sounds diminished on right side, with diffused rhonchorus breathing , distended jugular veins. oxygen sat improved with bipap from low 80s to 90% will attempt low dose xanax to help with anxiety while on bipap close monitoring and evaluation suspected fluid overload vs early ARDS from the infectious process continue with BIPAP and trial of lasix if this fails , will consider intubation RN updated on above plan
[2019-06-30] MEDS: IPRATROPIUM-ALBUTEROL 3 ML NEB INHALATION SCH ×6 (03:16→23:20)
[2019-06-30 06:38] LABS: HCT 37.2 % (34.0-46.0); Hypochromasia Slight; MCH 26.9 pg (25.0-35.0); MCHC 32.3 g/dL (31.0-37.0); MCV 83.4 fL (80.0-100.0); Mean Platelet Volume 7.1; Platelet Count 301 k/uL (150-450); RBC 4.46 m/uL (3.80-5.40); RDW 15.3 % (11.5-15.5); WBC 8.8 k/uL (3.8-10.6)
[2019-06-30 06:56] LABS: ALT 18 U/L (9-52); AST 35 U/L (14-36); African American GFR (CKD) >90 (>60 ml/min/1.73 sqM); Albumin 3.1 g/dL (3.5-5.0); Alkaline Phosphatase 69 U/L (38-126); Anion Gap 12 mmol/L; Blood Urea Nitrogen 15 mg/dL (7-17); Calcium 7.7 mg/dL (8.4-10.2); Carbon Dioxide 27 mmol/L (22-30); Chloride 100 mmol/L (98-107); Glucose 123 mg/dL (74-99); Non-African American GFR(CKD) 78 (>60 ml/min/1.73 sqM); Potassium 3.2 mmol/L (3.5-5.1); Sodium 139 mmol/L (137-145); Total Bilirubin 0.7 mg/dL (0.2-1.3); Total Protein 6.7 g/dL (6.3-8.2)
[2019-06-30] MEDS: LEVOTHYROXINE 88 MCG TAB PO SCH (07:09)
[2019-06-30] MEDS ORDERED: Potassium Replacement Protocol 1 EACH MISC MISCELLANE PRN (07:31)
[2019-06-30] MEDS: hydrALAZINE HCL 50 MG TAB PO SCH ×3 (08:12→20:07)
[2019-06-30] MEDS: ISOSORBIDE MONONITRATE ER 30 MG TAB.ER.24H PO SCH (08:13)
[2019-06-30] MEDS ORDERED: LEVOFLOXACIN 750 MG TAB PO SCH (09:00)
[2019-06-30] MEDS ORDERED: VANCOMYCIN 1,250 MG in SODIUM CHLORIDE 0.9% 250 ML IVPB SCH (09:00)
[2019-06-30] MEDS: HEPARIN SODIUM,PORCINE 5,000 UNIT/ML 1 ML VIAL SQ SCH ×3 (09:25→23:22)
[2019-06-30] MEDS: PIPERACILLIN-TAZOBACTAM 3.375 GM in SODIUM CHLORIDE 0.9% 100 ML IVPB SCH ×3 (09:25→23:22)
[2019-06-30] MEDS: PRAVASTATIN SODIUM 20 MG TAB PO SCH (09:28)
[2019-06-30] MEDS: ACETAMINOPHEN TAB 325 MG TAB PO SCH ×2 (09:28→18:50)
[2019-06-30] MEDS: PANTOPRAZOLE 40 MG TABLET PO SCH (09:28)
[2019-06-30] MEDS: HYDROCHLOROTHIAZIDE 12.5 MG CAP PO SCH (09:28)
--- NOTE | 2019-06-30 11:48 | P.PN ---
Subjective Progress Note Date: 06/30/19 Principal diagnosis: Masslike infiltrate versus tumor left midlung. This a very pleasant 88-year-old female patient who was admitted on 06/28/2019 and found to have a masslike consolidation versus tumor of the left midlung. We are consulted for the same. She was seen in consultation yesterday by Dr. Drew. She is seen again today in follow-up on the selective care unit. She is currently awake and alert. She did require BiPAP support last evening and was given a dose of Lasix with not much improvement. She is currently on 15 L high flow nasal cannula to maintain O2 saturations in the 90s. She's currently afebrile. Hemodynamically stable. Blood culture reveals no growth to date. Sputum culture pending. White count 8.8. Hemoglobin 12.0. Creatinine 0.68. She remains on vancomycin, Zosyn and Levaquin. Objective - Vital Signs Vital signs: Vital Signs Temp 98.4 F 06/30/19 11:29 Pulse 81 06/30/19 11:29 Resp 20 06/30/19 11:29 BP 125/58 06/30/19 11:29 Pulse Ox 91 L 06/30/19 11:29 Intake & Output 06/29/19 06/30/19 06/30/19 18:59 06:59 18:59 Intake Total 120 900 Balance 120 900 Intake: Intake, IV Titration 100 Amount Piperacillin-Tazobactam 3 100 .375 gm In Sodium Chloride 0.9% 100 ml @ 25 mls/hr IVPB Q8HR [facility] Rx# :[id number] Oral 120 800 Other: Voiding Method Diaper Diaper Diaper # Voids 1 2 # Bowel Movements 0 1 - Exam GENERAL EXAM: Alert, active, comfortable in mild respiratory distress. 15 L high flow nasal cannula. HEAD: Normocephalic. EYES: Normal reaction of pupils, equal size. NOSE: Clear with pink turbinates. THROAT: No erythema or exudates. NECK: No masses, no JVD. CHEST: No chest wall deformity. LUNGS: Equal air entry with scattered rhonchi more so on the left lung. CVS: S1 and S2 normal with no audible murmur, regular rhythm. ABDOMEN: No hepatosplenomegaly, normal bowel sounds, no guarding or rigidity. SPINE: No scoliosis or deformity SKIN: No rashes CENTRAL NERVOUS SYSTEM: No focal deficits, tone is normal in all 4 extremities. EXTREMITIES: There is no peripheral edema. No clubbing, no cyanosis. Peripheral pulses are intact. - Labs CBC & Chem 7: 06/30/19 05:53 06/30/19 05:53 Labs: Abnormal Lab Results - Last 24 Hours (Table) 06/29/19 06/30/19 Range/Units 07:03 05:53 Potassium 3.2 L (3.5-5.1) mmol/L Glucose 123 H (74-99) mg/dL Calcium 7.7 L (8.4-10.2) mg/dL Iron 4 L (50-170) ug/dL Iron Saturation 1.65 L (12.00-45.00) Albumin 3.1 L (3.5-5.0) g/dL Vitamin B12 1205.0 H (200.0-944.0) pg/mL Microbiology - Last 24 Hours (Table) 06/28/19 09:10 Blood Culture - Preliminary Blood No Growth after 48 hours 06/29/19 07:16 Blood Culture - Preliminary Blood No Growth after 24 hours 06/29/19 13:59 Gram Stain - Preliminary Sputum Assessment and Plan Assessment: Assessment: #1 Mass like infiltrate versus tumor the left midlung. Considering significant left-sided pneumonia. Currently on Zosyn, vancomycin and Levaquin. Sputum culture pending. #2 History of hypertension. #3 Hypothyroidism. #4 Urinary incontinence. #5 GERD. #6 Hyperlipidemia. #7 History of angina pectoris. #8 Restless leg syndrome. Plan: The patient was seen and evaluated by Dr. Drew. We'll continue with high flow oxygen at 15 L/m per nasal cannula. Continue his current antibiotics including Zosyn, vancomycin and Levaquin. ID is on the case. Sputum cultures pending. He did have a conversation with patient and family. She is a full code currently. We will have further discussion. Hopefully she'll start to improve. Maintaining O2 saturations greater than 88% will be acceptable. I, the cosigning physician, performed a history & physical examination of the patient. Lungs sounds scattered rhonchi more so on the left. Maintaining good O2 saturations in the 90s on 15 L high flow nasal cannula. I discussed the assessment and plan of care with my nurse practitioner, Felisha Randall. I attest to the above note as dictated by her.
--- NOTE | 2019-06-30 14:23 | P.PN ---
Subjective Progress Note Date: 06/30/19 Principal diagnosis: Pneumonia Patient was seen and examined. No acute events overnight. Saturating low 90s on 15 L high flow. Patient reports significant improvement in her breathing since admission but continues to complain of shortness of breath. She denies chest or palpitations. No nausea or vomiting. No fever or chills. Objective - Vital Signs Vital signs: Vital Signs Temp 98.4 F 06/30/19 11:29 Pulse 81 06/30/19 11:29 Resp 20 06/30/19 11:29 BP 125/58 06/30/19 11:29 Pulse Ox 91 L 06/30/19 11:29 Intake & Output 06/29/19 06/30/19 06/30/19 18:59 06:59 18:59 Intake Total 120 900 470 Balance 120 900 470 Intake: Intake, IV Titration 100 350 Amount Piperacillin-Tazobactam 3 100 100 .375 gm In Sodium Chloride 0.9% 100 ml @ 25 mls/hr IVPB Q8HR [facility] Rx# :[id number] Vancomycin 1,250 mg In 250 Sodium Chloride 0.9% 250 ml @ 125 mls/hr IVPB Q24H [facility] Rx#:[id number] Oral 120 800 120 Other: Voiding Method Diaper Diaper Diaper # Voids 1 2 2 # Bowel Movements 0 1 - Exam General: [non toxic], [no distress], [appears at stated age] Derm: [warm], [dry] Head: [atraumatic], [normocephalic], [symmetric] Eyes: [EOMI], [no lid lag], [anicteric sclera] Mouth: [no lip lesion], [mucus membranes moist] Cardiovascular: [S1S2 reg], [no murmur], [positive DP pulse bilateral] Lungs: [CTA bilateral], [rhonchi bilaterally] , [no accessory muscle use] Abdominal: [soft], [ nontender to palpation], [no guarding], [no appreciable organomegaly] Ext: [no gross muscle atrophy], [no edema], [no contractures] Neuro: [no focal neuro deficits] Psych: [Alert], [oriented], [appropriate affect] - Labs CBC & Chem 7: 06/30/19 05:53 06/30/19 05:53 Labs: Abnormal Lab Results - Last 24 Hours (Table) 06/29/19 06/30/19 Range/Units 07:03 05:53 Potassium 3.2 L (3.5-5.1) mmol/L Glucose 123 H (74-99) mg/dL Calcium 7.7 L (8.4-10.2) mg/dL Iron 4 L (50-170) ug/dL Iron Saturation 1.65 L (12.00-45.00) Albumin 3.1 L (3.5-5.0) g/dL Vitamin B12 1205.0 H (200.0-944.0) pg/mL Microbiology - Last 24 Hours (Table) 06/28/19 09:10 Blood Culture - Preliminary Blood No Growth after 48 hours 06/29/19 07:16 Blood Culture - Preliminary Blood No Growth after 24 hours 06/29/19 13:59 Gram Stain - Preliminary Sputum Assessment and Plan Assessment: Acute hypoxic respiratory failure Sepsis secondary to community-acquired pneumonia, concerns for postobstructive pneumonia Hypokalemia Hypertension Hypothyroidism Likely secondary to community-acquired pneumonia. As seen on chest x-ray, chest CT. Plans: Tylenol as needed for fever. Maintain O2 saturation greater than 88%. Continue levofloxacin and vancomycin and Zosyn for concerns of pneumonia. Follow pulmonology recommendations. DuoNeb as needed for shortness of breath or wheezing. Follow pulmonology recommendations. Follow blood cultures and sputum cultures. Follow chest x-ray tomorrow morning. Follow-up echocardiogram. Plans: Management as above. Follow ID consultation. Potassium 3.3. Plans: Replace via protocol. BP 125/58. Plans: Continue amlodipine, hydralazine, hydrochlorothiazide, Imdur, nebivolol. Monitor vitals, adjust medications as necessary. Plans: Continue Synthroid Patient admitted for community-acquired pneumonia. Continued on IV antibiotics. Low threshold for intubation. Pulmonology on board. Patient is full code at this time.
--- NOTE | 2019-06-30 15:45 | ECHOF ---
Referral Reason:SOB MEASUREMENTS -------- HEIGHT: 154.9 cm WEIGHT: 61.2 kg BP: 160/40 IVSd: 0.7 cm (0.6 - 1.1) LVIDd: 4.1 cm (3.9 - 5.3) LVPWd: 0.9 cm (0.6 - 1.1) IVSs: 0.8 cm LVIDs: 3.5 cm LVPWs: 0.9 cm LAESV Index (A-L): 26.46 ml/m Ao Diam: 2.3 cm (2.0 - 3.7) LA Diam: 3.0 cm (2.7 - 3.8) AV Cusp: 1.9 cm (1.5 - 2.6) EPSS: 2.4 cm MV E Silvano: 1.09 m/s MV DecT: 201 ms MV A Silvano: 1.20 m/s MV E/A Ratio: 0.91 AR PHT: 293 ms RAP: 5.00 mmHg RVSP: 48.34 mmHg MV EF SLOPE: 107.51 mm/s (70 - 150) MV EXCURSION: 15.18 mm (> 18.000) FINDINGS -------- Sinus rhythm. This was a technically good study. The left ventricular size is normal. Left ventricular wall thickness is normal. Overall left vent ricular systolic function is mild-moderately impaired with, an EF between 40 - 45 %. Basal anterose ptal LV wall motion is hypokinetic. Mid anteroseptal LV wall motion is hypokinetic. Septal Hypo kinesis The right ventricle is normal in size. Normal LA size by volume 22+/-6 ml/m2. The right atrial size is normal. Interatrial and interventricular septum intact. Aortic valve is trileaflet and is mildly thickened. Trace amount of aortic regurgitation. The mitral valve is normal. The mitral valve leaflets are mildly thickened. Mild mitral annular c alcification present. Mild mitral regurgitation is present. Severe tricuspid regurgitation present. There is moderate pulmonary hypertension. The right ventr icular systolic pressure, as measured by Doppler, is 48.34mmHg. There is no pulmonic regurgitation present. The aortic root size is normal. Normal inferior vena cava with normal inspiratory collapse consistent with estimated right atrial pre ssure of 5 mmHg. There is a trivial pericardial effusion present. CONCLUSIONS -------- 1. Sinus rhythm. 2. This was a technically good study. 3. The left ventricular size is normal. 4. Left ventricular wall thickness is normal. 5. Overall left ventricular systolic function is mild-moderately impaired with, an EF between 40 - 45 %. 6. Basal anteroseptal LV wall motion is hypokinetic. 7. Mid anteroseptal LV wall motion is hypokinetic. 8. Septal Hypokinesis 9. The right ventricle is normal in size. 10. Normal LA size by volume 22+/-6 ml/m2. 11. The right atrial size is normal. 12. Interatrial and interventricular septum intact. 13. Aortic valve is trileaflet and is mildly thickened. 14. Trace amount of aortic regurgitation. 15. The mitral valve is normal. 16. The mitral valve leaflets are mildly thickened. 17. Mild mitral annular calcification present. 18. Mild mitral regurgitation is present. 19. Severe tricuspid regurgitation present. 20. There is moderate pulmonary hypertension. 21. The right ventricular systolic pressure, as measured by Doppler, is 48.34mmHg. 22. There is no pulmonic regurgitation present. 23. The aortic root size is normal. 24. Normal inferior vena cava with normal inspiratory collapse consistent with estimated right atrial pressure of 5 mmHg. 25. There is a trivial pericardial effusion present. [employer] NETWORK ENGINEER: Bell Crisostomo RDCS
[2019-06-30] MEDS: NEBIVOLOL 5 MG TAB PO SCH (15:46)
[2019-06-30] MEDS: MULTIVITAMINS, THERA 1 EACH TAB PO SCH (18:49)
[2019-06-30] MEDS: ASPIRIN 81 MG PO SCH (18:49)
--- NOTE | 2019-06-30 19:00 | PN ---
PROGRESS NOTE DATE OF SERVICE: 06/30/2019 REASON FOR FOLLOWUP: Pneumonia. INTERVAL HISTORY: The patient is currently afebrile. The patient has been breathing comfortably compared to yesterday. The patient denies having any chest pain. Her cough has decreased in intensity and is less productive. No nausea, no vomiting, no abdominal pain and no diarrhea. PHYSICAL EXAMINATION: Blood pressure 120/57 with a pulse of 80, temperature 97.9. She is 91% on partial non- rebreather. General description is an elderly female lying in bed in no distress. RESPIRATORY SYSTEM: Unlabored breathing. Some coarse breath sounds in the bases bilaterally. No wheeze. HEART: S1, S2. Regular rate and rhythm. ABDOMEN: Soft. No tenderness. EXTREMITIES: No edema of the feet. LABS: Hemoglobin is 12 with a white count of 8.8. BUN of 15, creatinine of 0.68. Blood cultures have been negative so far. Sputum culture currently pending. DIAGNOSTIC IMPRESSION AND PLAN: Patient admitted to hospital after a fall in this patient who did have a fever and elevated white count with evidence of pneumonia on the left side. The patient is currently covered with Levaquin and Zosyn; to continue while waiting for the culture to finalize. Family at the bedside. Their questions were answered. MMODL / IJN: [id number] /
[2019-06-30] MEDS ORDERED: ALPRAZolam 0.25 MG TAB PO STA (19:51)
[2019-06-30] MEDS ORDERED: FUROSEMIDE 10 MG/ML 4 ML VIAL IV STA (19:51)
[2019-06-30] MEDS: NON FORMULARY DRUG (Mirabegron [Myrbetriq] 25 MG) PO SCH (20:07)
[2019-06-30] MEDS ORDERED: DIGOXIN 250 MCG TAB PO STA (21:04)
[2019-06-30 23:07] LABS: ABG Base Excess 5.6 mmol/L; ABG HCO3 28 mmol/L (21-25); ABG Oxygen Saturation 92.3 % (94-97); ABG PCO2 34 mmHg (35-45); ABG PH 7.53 (7.35-7.45); ABG TCO2 29 mmol/L (19-24); Allen Test Performed? Yes
[2019-06-30 23:16] LABS: Glucose,Whole Blood 133 mg/dL (75-99)
[2019-06-30 23:35] LABS: ABG PO2 58 mmHg (83-108)
[2019-06-30 23:37] LABS: Albumin 3.1 g/dL (3.5-5.0); Calcium 7.8 mg/dL (8.4-10.2); Potassium 3.3 mmol/L (3.5-5.1); Total Bilirubin 0.6 mg/dL (0.2-1.3); Total Protein 6.6 g/dL (6.3-8.2)
[2019-06-30 23:39] LABS: Basophils % (A) 0 %; Eosinophils # (A) 0.1 k/uL (0-0.7); Eosinophils % (A) 1 %; HCT 38.8 % (34.0-46.0); HGB 11.9 gm/dL (11.4-16.0); Hypochromasia Moderate; Lymphocytes # (A) 0.5 k/uL (1.0-4.8); Lymphocytes % (A) 5 %; MCH 26.4 pg (25.0-35.0); MCHC 30.7 g/dL (31.0-37.0); Mean Platelet Volume 7.4; Monocytes # (A) 0.2 k/uL (0-1.0); Monocytes % (A) 2 %; Neutrophils # (A) 8.8 k/uL (1.3-7.7); Neutrophils % (A) 91 %; Platelet Count 317 k/uL (150-450); RBC 4.51 m/uL (3.80-5.40); RDW 15.4 % (11.5-15.5); WBC 9.7 k/uL (3.8-10.6)
[2019-06-30 23:49] LABS: Glucose,Whole Blood 129 mg/dL (75-99)
--- NOTE | 2019-07-01 00:02 | XR ---
History: ITS.REASON XR Reason: Shortness of breath Exam: XR CXR 1 VIEW Comparison: 06/29/2019 FINDINGS: Moderate to severe interval worsening of right perihilar ill-defined airspace opacity from the prior study. Persistent severe appearing patchy ill-defined perihilar opacity on the left. Some mild interval improved aeration at the left base suggested. IMPRESSION: Moderate to severe interval worsening of right perihilar ill-defined airspace opacity from the prior study. Persistent severe appearing patchy ill-defined perihilar opacity on the left. Some mild interval improved aeration at the left base suggested.
[2019-07-01] MEDS: POTASSIUM CHLORIDE 10 MEQ in WATER FOR INJECTION 1 100ML.BAG IVPB SCH ×4 (00:06→04:01)
[2019-07-01] MEDS ORDERED: NALOXONE 0.4 MG/ML 1 ML VIAL IV PRN (00:36)
[2019-07-01 01:41] LABS: Appearance,Urine Clear (Clear); Bacteria,Urine Rare /hpf; Bilirubin,Urine Negative (Negative); Blood,Urine Moderate (Negative); Color,Urine Yellow; Glucose,Urine (UA) Negative (Negative); Ketones,Urine Negative (Negative); Leukocyte Esterase,Urine Trace (Negative); Mucus,Urine Rare /hpf; Nitrite,Urine Negative (Negative); PH, Urine 5.5 (5.0-8.0); Protein,Urine Trace (Negative); RBC,Urine 77 /hpf (0-5); Specific Gravity,Urine 1.013 (1.001-1.035); Urobilinogen,Urine <2.0 mg/dL (<2.0); WBC,Urine 3 /hpf (0-5)
[2019-07-01] MEDS: IPRATROPIUM-ALBUTEROL 3 ML NEB INHALATION SCH (03:23)
[2019-07-01] MEDS ORDERED: DIGOXIN 125 MCG TAB PO ONE ×2 (04:00→05:00)
[2019-07-01 04:20] LABS: Basophils % (A) 0 %; Eosinophils % (A) 0 %; HCT 35.6 % (34.0-46.0); HGB 10.9 gm/dL (11.4-16.0); Hypochromasia Moderate; Lymphocytes # (A) 0.4 k/uL (1.0-4.8); Lymphocytes % (A) 5 %; MCH 25.8 pg (25.0-35.0); MCHC 30.5 g/dL (31.0-37.0); MCV 84.6 fL (80.0-100.0); Mean Platelet Volume 7.1; Monocytes # (A) 0.3 k/uL (0-1.0); Monocytes % (A) 3 %; Neutrophils % (A) 91 %; Platelet Count 311 k/uL (150-450); RBC 4.21 m/uL (3.80-5.40); RDW 15.4 % (11.5-15.5); WBC 8.8 k/uL (3.8-10.6)
[2019-07-01 04:30] LABS: Calcium 7.6 mg/dL (8.4-10.2); Phosphorus 1.3 mg/dL (2.5-4.5); Potassium 3.4 mmol/L (3.5-5.1)
[2019-07-01 04:51] VITALS: TEMP 99.2
[2019-07-01] MEDS ORDERED: ATROPINE OPHTH SOLN 1% 5ML BTL SUBLINGUAL PRN (04:52)
[2019-07-01] MEDS ORDERED: LORazepam 2 MG/ML INJ IV PRN (04:52)
[2019-07-01] MEDS ORDERED: MORPHINE SULFATE 4 MG/ML SYRINGE IV PRN (04:52)
[2019-07-01] MEDS ORDERED: SCOPOLAMINE 1.5MG/72HR PATCH TRANSDERM SCH (05:00)
[2019-07-01] MEDS: MORPHINE SULFATE 2 MG/ML SYRINGE IV PRN ×2 (05:41→06:23)
[2019-07-01 05:50] VITALS: BP 97/73
[2019-07-01] MEDS ORDERED: MORPHINE SULFATE (100 MG/2 ML) 100 MG in SODIUM CHLORIDE 0.9% 100 ML IV SCH (06:00)
[2019-07-01 06:10] VITALS: PULSE 108; RESP 42
--- NOTE | 2019-07-01 08:14 | PN ---
PROGRESS NOTE PULMONARY/CRITICAL CARE PROGRESS NOTE: DATE OF SERVICE: 07/01/2019 This is an 88-year-old female who was admitted back on June 28 with pneumonia and/or mass in the left lung. The patient was transferred to the ICU last night. Her respiratory status declined. Sometime early this morning the family apparently came in and made her a DO NOT RESUSCITATE. In ICU this morning, she is on BiPAP at 12 and 5 for IPAP and EPAP setting and 100% FiO2. She is getting saline IV at 10 mL an hour. Culture data thus far has been negative. Her blood gases on 80% showed a PO2 of 58, a pCO2 of 34, and pH of 7.53. Her FiO2 was bumped up from 80 to 100%. Currently, she is not doing well. Her work of breathing is quite substantial. Additional conversations with the family result in the family decided to make her a comfort measures only. She was on multiple antibiotics including Zosyn, vancomycin and Levaquin. She has a history of hypertension, hypothyroidism, urinary incontinence, GERD, hyperlipidemia, angina, and restless legs syndrome. I told the family that we would discontinue all unnecessary medications. Apply oxygen therapy, scopolamine patch, Ativan for anxiety and morphine for pain, should she require it. Obviously, we will do nothing to hasten her and just try to make the process of her passing comfortable. This is the family's wishes and these are the wishes of the patient, according to the family. PHYSICAL EXAMINATION: Current vital signs are reviewed. Her temperature is 99.2, her heart rate is 113, respiratory rate is 40, blood pressure 121/43, mean 69, saturations are 93% on 100% non- rebreather. HEENT: Examination is grossly unremarkable. Mucous membranes are dry. NECK: Supple. Full range of motion. No adenopathy, thyromegaly or neck vein distention. CARDIOVASCULAR examination reveals tachycardia. Heart rate about 115. It is regular. LUNGS: Reveal coarse rhonchi. Breath sounds are diminished. No crackles. No wheezes. ABDOMEN: Soft. Bowel sounds are not noted. EXTREMITIES: Intact. Minimal edema. SKIN: Without rash. NEUROLOGIC: Examination is nonfocal. She does move all 4 extremities. LAB DATA: From today includes a white count of 8.8, hemoglobin 10.9, hematocrit 35.6, platelet count 311,000. Sodium 138, potassium 3.4, chloride is 100, CO2 is 26, anion gap is 12. BUN and creatinine were 23 and 0.75. Lactic acid from yesterday was 2.1. It is 1.4 today. Her N terminal proBNP is 7,080. Microbiologic studies are pending. Medications are reviewed. Her chest x-ray from yesterday showed similar findings of diffuse infiltrates on the right lung and the right perihilar region and some patchy opacities on the left. Initially, the radiologist read her chest x-ray showing a possible mass in the left mid lung, left lower lobe area. This in fact could be a mass. It is hard to tell. ASSESSMENT: 1. Hypoxemic respiratory failure secondary to probable pneumonia bilaterally and possibly complicated by a mass in the left mid lung. 2. History of hypertension. 3. Hypothyroidism. 4. Urinary incontinence. 5. Gastroesophageal reflux disease. 6. Hyperlipidemia. 7. History of angina pectoris. 8. Restless legs syndrome. PLAN: The patient's family had decided to make her DNR last night. They also would prefer comfort measures at this point. I explained what that was. I told them that we will provide oxygen therapy, anxiolytics, and pain medications as needed. Nothing would be given to her hasten her . Additional recommendations and suggestions are forthcoming. The family is happy with this decision. The patient does not like BiPAP, the mask and wants it removed. This is appropriate. Additional recommendations and suggestions are forthcoming. Prognosis is obviously very poor. Will continue to follow. MMODL / IJN: [id number] /
--- NOTE | 2019-07-01 12:59 | P.PN ---
Subjective Progress Note Date: 07/01/19 Principal diagnosis: Acute hypoxic respiratory Patient was seen and examined. Worsening respiratory status overnight requiring BiPAP. Multiple family members are at bedside. Family and patient makes decision to pursue DNR/DNI at this time. Also went into A. fib. Started on digoxin. Comfort measure orders placed. Objective - Vital Signs Vital signs: Vital Signs Temp 99.2 F 07/01/19 04:00 Pulse 108 H 07/01/19 06:00 Resp 42 H 07/01/19 06:00 BP 97/73 07/01/19 05:30 Pulse Ox 82 L 07/01/19 06:00 Intake & Output 06/30/19 07/01/19 07/01/19 18:59 06:59 18:59 Intake Total 670 501.309 Output Total 670 Balance 670 -168.691 Weight 62.1 kg Intake: IV 500 Piperacillin-Tazobactam 3 100 .375 gm In Sodium Chloride 0.9% 100 ml @ 25 mls/hr IVPB Q8HR [facility] Rx# :[id number] Potassium Chloride 10 meq 400 In Water For Injection 1 100ml.bag @ 100 mls/hr IVPB Q1HR [facility] Rx#: [id number] Intake, IV Titration 350 1.309 Amount Morphine Sulfate (100 mg/ 1.309 2 ml) 100 mg In Sodium Chloride 0.9% 100 ml @ 1 MG/HR 1.02 mls/hr IV . Q24H [facility] Rx#:[id number] Piperacillin-Tazobactam 3 100 .375 gm In Sodium Chloride 0.9% 100 ml @ 25 mls/hr IVPB Q8HR [facility] Rx# :[id number] Vancomycin 1,250 mg In 250 Sodium Chloride 0.9% 250 ml @ 125 mls/hr IVPB Q24H [facility] Rx#:[id number] Oral 320 Output: Urine 670 Other: Voiding Method Diaper Indwelling Catheter Indwelling Catheter # Voids 2 1 # Bowel Movements 1 - Exam General: [non toxic], [no distress], [appears at stated age] Derm: [warm], [dry] Head: [atraumatic], [normocephalic], [symmetric] Patient is unresponsive. Vital signs show that patient is tachypneic and tachycardic requiring 15 L high flow NC. - Labs CBC & Chem 7: 07/01/19 04:02 08/07/19 04:02 Labs: Abnormal Lab Results - Last 24 Hours (Table) 06/30/19 06/30/19 06/30/19 Range/Units 23:04 23:05 23:09 Hgb (11.4-16.0) gm/dL MCHC (31.0-37.0) g/dL Neutrophils # (1.3-7.7) k/uL Lymphocytes # (1.0-4.8) k/uL D-Dimer (<0.60) mg/L FEU ABG pH 7.53 H (7.35-7.45) ABG pCO2 34 L (35-45) mmHg ABG pO2 58 L* (83-108) mmHg ABG HCO3 28 H (21-25) mmol/L ABG Total CO2 29 H (19-24) mmol/L ABG O2 Saturation 92.3 L (94-97) % Potassium 3.3 L (3.5-5.1) mmol/L BUN 23 H (7-17) mg/dL Glucose 140 H (74-99) mg/dL POC Glucose (mg/dL) 133 H (75-99) mg/dL Plasma Lactic Acid Mele (0.7-2.0) mmol/L Calcium 7.8 L (8.4-10.2) mg/dL Phosphorus (2.5-4.5) mg/dL AST 53 H (14-36) U/L Albumin 3.1 L (3.5-5.0) g/dL Urine Protein (Negative) Urine Blood (Negative) Ur Leukocyte Esterase (Negative) Urine RBC (0-5) /hpf Urine Bacteria (None) /hpf Urine Mucus (None) /hpf 06/30/19 06/30/19 06/30/19 Range/Units 23:17 23:17 23:17 Hgb (11.4-16.0) gm/dL MCHC 30.7 L (31.0-37.0) g/dL Neutrophils # 8.8 H (1.3-7.7) k/uL Lymphocytes # 0.5 L (1.0-4.8) k/uL D-Dimer 9.65 H (<0.60) mg/L FEU ABG pH (7.35-7.45) ABG pCO2 (35-45) mmHg ABG pO2 (83-108) mmHg ABG HCO3 (21-25) mmol/L ABG Total CO2 (19-24) mmol/L ABG O2 Saturation (94-97) % Potassium (3.5-5.1) mmol/L BUN (7-17) mg/dL Glucose (74-99) mg/dL POC Glucose (mg/dL) (75-99) mg/dL Plasma Lactic Acid Mele 2.1 H* (0.7-2.0) mmol/L Calcium (8.4-10.2) mg/dL Phosphorus (2.5-4.5) mg/dL AST (14-36) U/L Albumin (3.5-5.0) g/dL Urine Protein (Negative) Urine Blood (Negative) Ur Leukocyte Esterase (Negative) Urine RBC (0-5) /hpf Urine Bacteria (None) /hpf Urine Mucus (None) /hpf 06/30/19 07/01/19 07/01/19 Range/Units 23:38 01:15 04:02 Hgb 10.9 L (11.4-16.0) gm/dL MCHC 30.5 L (31.0-37.0) g/dL Neutrophils # 8.0 H (1.3-7.7) k/uL Lymphocytes # 0.4 L (1.0-4.8) k/uL D-Dimer (<0.60) mg/L FEU ABG pH (7.35-7.45) ABG pCO2 (35-45) mmHg ABG pO2 (83-108) mmHg ABG HCO3 (21-25) mmol/L ABG Total CO2 (19-24) mmol/L ABG O2 Saturation (94-97) % Potassium (3.5-5.1) mmol/L BUN (7-17) mg/dL Glucose (74-99) mg/dL POC Glucose (mg/dL) 129 H (75-99) mg/dL Plasma Lactic Acid Mele (0.7-2.0) mmol/L Calcium (8.4-10.2) mg/dL Phosphorus (2.5-4.5) mg/dL AST (14-36) U/L Albumin (3.5-5.0) g/dL Urine Protein Trace H (Negative) Urine Blood Moderate H (Negative) Ur Leukocyte Esterase Trace H (Negative) Urine RBC 77 H (0-5) /hpf Urine Bacteria Rare H (None) /hpf Urine Mucus Rare H (None) /hpf 07/01/19 Range/Units 04:02 Hgb (11.4-16.0) gm/dL MCHC (31.0-37.0) g/dL Neutrophils # (1.3-7.7) k/uL Lymphocytes # (1.0-4.8) k/uL D-Dimer (<0.60) mg/L FEU ABG pH (7.35-7.45) ABG pCO2 (35-45) mmHg ABG pO2 (83-108) mmHg ABG HCO3 (21-25) mmol/L ABG Total CO2 (19-24) mmol/L ABG O2 Saturation (94-97) % Potassium 3.4 L (3.5-5.1) mmol/L BUN 23 H (7-17) mg/dL Glucose 128 H (74-99) mg/dL POC Glucose (mg/dL) (75-99) mg/dL Plasma Lactic Acid Mele (0.7-2.0) mmol/L Calcium 7.6 L (8.4-10.2) mg/dL Phosphorus 1.3 L (2.5-4.5) mg/dL AST (14-36) U/L Albumin (3.5-5.0) g/dL Urine Protein (Negative) Urine Blood (Negative) Ur Leukocyte Esterase (Negative) Urine RBC (0-5) /hpf Urine Bacteria (None) /hpf Urine Mucus (None) /hpf Microbiology - Last 24 Hours (Table) 06/28/19 09:10 Blood Culture - Preliminary Blood No Growth after 72 hours 07/01/19 01:15 Urine Culture - Preliminary Urine,Catheterized 06/29/19 07:16 Blood Culture - Preliminary Blood No Growth after 48 hours 06/29/19 13:59 Gram Stain - Preliminary Sputum Sputum Culture - Preliminary Aspergillus species Assessment and Plan Assessment: Acute hypoxic respiratory failure Sepsis secondary to community-acquired pneumonia, concerns for postobstructive pneumonia Hypokalemia Hypertension Hypothyroidism Likely secondary to community-acquired pneumonia. As seen on chest x-ray, chest CT. Plans to pursue hospice, patient DNR/DNI. Plans: Consult hospice. Scopolamine and atropine for secretions. Morphine for air hunger. Plans: Management as above. Potassium 3.3-3.4. Plans: Plans to pursue comfort care. BP 97/73. Plans: Plans to pursue comfort care. Plans: Plans to pursue comfort care. Patient admitted for community-acquired pneumonia. DNR/DNI. Last pursue comfort care. Hospice consult placed for possible switch to inpatient hospice.
[2019-07-01] MEDS ORDERED: DIGOXIN 62.5 MCG TAB PO ONE (13:00)
--- NOTE | 2019-07-02 09:34 | P.DS ---
Providers Date of admission: 06/28/19 13:09 Expected date of discharge: 07/01/19 Attending physician: Thelma Chavez MD Consults: 06/29/19 13:20 Consult Physician Urgent Consulting Provider: Serafin Drew Consult Reason/Comments: pneumonia Do you want consulting provider notified?: Yes Primary care physician: Sundeep Palmer [facility] Course: The patient is a 88-year-old female with a PMH of hypertension who presented to the ED after a fall at home. The patient notes that she was in her usual state of health when she woke up on the morning of presentation, felt that she got out of her bed too quickly when she suddenly became weak and fell down on her buttocks. She denied losing consciousness or any head trauma. The patient immediately got back up and was able to ambulate. EMS was subsequently activated and the patient was brought to the ED. The daughter stated that over the previous few days, she had noted that her mother had been having some shortness of breath along with cough productive of yellow-green phlegm. Patient underwent an extensive evaluation in the ED with x-rays which revealed no acute fractures. Chest CT revealed a masslike consolidation in the left upper lobe and lingula with malignancy not ruled out. EKG revealed a sinus rhythm with first-degree AV block and APC at 93 bpm. Lab evaluation revealed a leukocytosis of 12.8, hemoglobin 10.8, platelets 334, sodium 135, potassium 4.0, BUN 30, creatinine 0.92, and CK 201. Patient was also noted to be febrile with T-max of 101. The patient was given IV antibiotics and was subsequently admitted to the medicine service for lobar pneumonia, with plan to obtain follow-up CT for further evaluation of mass. The patient was initially given Zosyn, Levaquin, Azithromycin, and Ceftriaxone in the ED. She was switched to Levaquin monotherapy upon admission. The patient's condition however worsened on 06/29/19. She was noted to be febrile in the am. Repeat CXR revealed worsening of the consolidation. Serum lactate was 1.3, from 1.4 on admission. Pulmonary and ID was consulted and the patient was placed on Vancomycin and Zosyn. Patient was treated for sepsis secondary to community acquired pneumonia with concerns of postobstructive pneumonia. She was on levofloxacin, vancomycin and Zosyn. She was given DuoNeb as needed for shortness of breath and wheezing. Pulmonology was consulted and followed the patient throughout her hospital course. Blood cultures were prelim negative at 72 hours. Sputum culture grew Aspergillus species. Patient had worsening of her respiratory status and required BiPAP, transferred to ICU on day 2. She went into A. fib and was started on digoxin scheduled. Family, along with the patient decided to pursue DNR/DNI at that time and patient was transitioned to comfort measures. Pertinent Studies: Chest CT, echocardiogram, chest x-ray, spine x-ray Patient Condition at Discharge: Stable Plan - Discharge Summary Discharge Rx Participant: No New Discharge Prescriptions: Discontinued Acetaminophen [Tylenol] 650 mg PO BID@0930,1900 Aspirin [[place] Aspirin EC] 81 mg PO DAILY@1830 hydrALAZINE HCL [Apresoline] 50 mg PO TID Levothyroxine Sodium 88 mcg PO DAILY Mirabegron [Myrbetriq] 25 mg PO HS Multivitamins, Thera [Multivitamin (formulary)] 1 tab PO DAILY@1830 Nebivolol HCl [Bystolic] 10 mg PO DAILY@1830 Omeprazole 40 mg PO DAILY@1100 Potassium Chloride [K-Tab ER] 10 meq PO DAILY@1100 rOPINIRole HCL [Requip] 2 mg PO HS rOPINIRole HCL [Requip] 1 mg PO DAILY@1100 Pravastatin Sodium [Pravachol] 20 mg PO DAILY Acetaminophen-Codeine 300-30mg [Tylenol w/codeine #3] 1 tab PO BID PRN PRN Reason: Pain Isosorbide Mononitrate ER [Imdur] 30 mg PO DAILY amLODIPine [Norvasc] 5 mg PO DAILY Hydrochlorothiazide 12.5 mg PO DAILY Cholecalciferol [Vitamin D3 (25 Mcg = 1000 Iu)] 1,000 units PO DAILY Follow up Appointment(s)/Referral(s): [facility], [NON-STAFF] - [facility], [NON-STAFF] - 1 Week Sundeep Hauser MD [Primary Care Provider] - 1-2 days Discharge Disposition: [facility]CH TO [facility]
--- NOTE | 2019-07-02 14:04 | CDI ---
Documentation Clarification Form Date: 07/02/19 From: Erin Landin Phone: If you have a question regarding this query, please contact Valentina Sebastian at [phone] between 8am and 5pm. Admit Date: 06/28/2019 1:09:00 PM Patient Name: Amanda Fairbanks Visit Number: [id number] Discharge Date: 07/01/2019 7:05:00 PM ATTENTION: The Clinical Documentation Specialists (CDI) and [facility] Coding Staff appreciate your assistance in clarifying documentation. Please respond to the clarification below the line at the bottom and electronically sign. The CDI & [facility] Coding staff will review the response and follow-up if needed. Please note: Queries are made part of the Legal Health Record. If you have any questions, please contact the author of this message via ITS. Dr. Vinayak Perez Atrial Fibrillation is documented in your 07/01 progress note and in the discharge summary. History/Risk Factors: Hypertension Clinical Indicators: Tachycardia EKG/telemetry: Telemetry on 07/01 showed atrial fibrillation with RVR Treatment: Started on digoxin In your professional opinion, can you please clarify the type of Atrial Fibrillation, if known? Chronic/Permanent Paroxysmal Persistent Other, please specify Unable to determine paroxysmal, patient developed while hospitalized MTDD
== END 2019-07-01 19:05 | disposition hospice, inpatient (51) | DRG 871 ==
LOC: EC 09:00 → 4SSUR 13:09 → 3SCARD 06-29 12:51 → 2SICU 06-30 23:29 → 4SSUR 07-01 10:14
PROVIDERS: ADMIT Internal Medicine; ATTEND Internal Medicine
DX: A41.9 Sepsis, unspecified organism (principal); J18.1 Lobar pneumonia, unspecified organism; J96.01 Acute respiratory failure with hypoxia; N17.9 Acute kidney failure, unspecified; E86.0 Dehydration; I48.0 Paroxysmal atrial fibrillation; R06.03 Acute respiratory distress; D64.9 Anemia, unspecified; E03.9 Hypothyroidism, unspecified; E78.5 Hyperlipidemia, unspecified; R91.8 Other nonspecific abnormal finding of lung field; E87.6 Hypokalemia; F41.9 Anxiety disorder, unspecified; G25.81 Restless legs syndrome; I10 Essential (primary) hypertension; I44.0 Atrioventricular block, first degree; J98.01 Acute bronchospasm; K21.9 Gastro-esophageal reflux disease without esophagitis; R32 Unspecified urinary incontinence; M25.559 Pain in unspecified hip; M54.9 Dorsalgia, unspecified; Z90.49 Acquired absence of other specified parts of digestive tract; Z79.899 Other long term (current) drug therapy; Z79.890 Hormone replacement therapy; Z79.82 Long term (current) use of aspirin; Z66 Do not resuscitate; Z51.5 Encounter for palliative care; Z83.3 Family history of diabetes mellitus; W06.XXXA Fall from bed, initial encounter; Y92.009 Unspecified place in unspecified non-institutional (private) residence as the place of occurrence of the external cause
CPT/HCPCS: 36415; 36600; 71045; 71046; 71260; 72072; 72110; 73521; 80048; 80053; 81001; 82550; 82607; 82728; 82746; 82805; 83540; 83550; 83605; 83690; 83735; 83880; 84100; 85025; 85027; 85379; 87040; 87070; 87086; 87205; 93005; 93306; 94640; 94660; 94760; 96361; 96374; 99291

== ENCOUNTER 2019-07-01 18:04 | Inpatient (IN) | payer MEDICAID ==
[2019-07-01] MEDS ORDERED: MORPHINE SULFATE 2 MG/ML SYRINGE IV PRN (18:13)
[2019-07-01] MEDS ORDERED: LORazepam 2 MG/ML INJ IV PRN (18:13)
[2019-07-01] MEDS ORDERED: ATROPINE OPHTH SOLN 1% 5ML BTL SUBLINGUAL PRN (18:13)
[2019-07-01] MEDS ORDERED: ACETAMINOPHEN SUPPOSITORY 650 MG SUPP RECTAL PRN (18:13)
[2019-07-01] MEDS ORDERED: ONDANSETRON 4 MG/2 ML VIAL IVP PRN (18:13)
[2019-07-01] MEDS ORDERED: MORPHINE SULFATE (100 MG/2 ML) 100 MG in SODIUM CHLORIDE 0.9% 100 ML IV SCH (18:15)
[2019-07-01] MEDS ORDERED: BISACODYL 10 MG SUPP RECTAL PRN (18:21)
[2019-07-01] MEDS ORDERED: MORPHINE SULFATE 100 MG in SODIUM CHLORIDE 0.9% 90 ML IV SCH (20:30)
[2019-07-02 00:44] VITALS: TEMP 100.3
--- NOTE | 2019-07-02 09:31 | P.HPIM ---
History of Present Illness H&P Date: 07/02/19 Chief Complaint: Acute hypoxic respiratory failure The patient is a 88-year-old female with a PMH of hypertension who presented to the ED after a fall at home. The patient notes that she was in her usual state of health when she woke up on the morning of presentation, felt that she got out of her bed too quickly when she suddenly became weak and fell down on her buttocks. She denied losing consciousness or any head trauma. The patient immediately got back up and was able to ambulate. EMS was subsequently activated and the patient was brought to the ED. The daughter stated that over the previous few days, she had noted that her mother had been having some shortness of breath along with cough productive of yellow-green phlegm. Patient underwent an extensive evaluation in the ED with x-rays which revealed no acute fractures. Chest CT revealed a masslike consolidation in the left upper lobe and lingula with malignancy not ruled out. EKG revealed a sinus rhythm with first-degree AV block and APC at 93 bpm. Lab evaluation revealed a leukocytosis of 12.8, hemoglobin 10.8, platelets 334, sodium 135, potassium 4.0, BUN 30, creatinine 0.92, and CK 201. Patient was also noted to be febrile with T-max of 101. The patient was given IV antibiotics and was subsequently admitted to the medicine service for lobar pneumonia, with plan to obtain follow-up CT for further evaluation of mass. The patient was initially given Zosyn, Levaquin, Azithromycin, and Ceftriaxone in the ED. She was switched to Levaquin monotherapy upon admission. The patient's condition however worsened on 06/29/19. She was noted to be febrile in the am. Repeat CXR revealed worsening of the consolidation. Serum lactate was 1.3, from 1.4 on admission. Pulmonary and ID was consulted and the patient was placed on Vancomycin and Zosyn. Patient was treated for sepsis secondary to community acquired pneumonia with concerns of postobstructive pneumonia. She was on levofloxacin, vancomycin and Zosyn. She was given DuoNeb as needed for shortness of breath and wheezing. Pulmonology was consulted and followed the patient throughout her hospital course. Blood cultures were prelim negative at 72 hours. Sputum culture grew Aspergillus species. Patient had worsening of her respiratory status and required BiPAP, transferred to ICU on day 2. She went into A. fib and was started on digoxin scheduled. Family, along with the patient decided to pursue DNR/DNI at that time and patient was transitioned to comfort measures. Review of Systems Patient unable to answer. Past Medical History Past Medical History: Chest Pain / Angina, GERD/Reflux, GI Bleed, Hypertension Additional Past Medical History / Comment(s): restless leg History of Any Multi-Drug Resistant Organisms: None Reported Past Surgical History: Appendectomy Past Anesthesia/Blood Transfusion Reactions: No Reported Reaction Past Psychological History: No Psychological Hx Reported Smoking Status: Never smoker Past Alcohol Use History: None Reported Past Drug Use History: None Reported - Past Family History Mother Family Medical History: Diabetes Mellitus Sister(s) Family Medical History: Cancer Medications and Allergies Home Medications Medication Instructions Recorded Confirmed Type Acetaminophen [Tylenol] 650 mg PO BID@0930,1900 06/28/19 07/01/19 History Aspirin [[place] Aspirin EC] 81 mg PO DAILY@18306/28/19 07/01/19 History Levothyroxine Sodium 88 mcg PO DAILY 06/28/19 07/01/19 History Mirabegron [Myrbetriq] 25 mg PO HS 06/28/19 07/01/19 History Multivitamins, Thera [Multivitamin 1 tab PO DAILY@18306/28/19 07/01/19 History (formulary)] Nebivolol HCl [Bystolic] 10 mg PO DAILY@1830 06/28/19 07/01/19 History Omeprazole 40 mg PO DAILY@1100 06/28/19 07/01/19 History Potassium Chloride [K-Tab ER] 10 meq PO DAILY@1100 06/28/19 07/01/19 History hydrALAZINE HCL [Apresoline] 50 mg PO TID 06/28/19 07/01/19 History rOPINIRole HCL [Requip] 1 mg PO DAILY@1100 06/28/19 07/01/19 History rOPINIRole HCL [Requip] 2 mg PO HS 06/28/19 07/01/19 History Acetaminophen-Codeine 300-30mg 1 tab PO BID PRN 06/29/19 07/01/19 History [Tylenol w/codeine #3] Cholecalciferol [Vitamin D3 (25 1,000 units PO DAILY 06/29/19 07/01/19 History Mcg = 1000 Iu)] Hydrochlorothiazide 12.5 mg PO DAILY 06/29/19 07/01/19 History Isosorbide Mononitrate ER [Imdur] 30 mg PO DAILY 06/29/19 07/01/19 History Pravastatin Sodium [Pravachol] 20 mg PO DAILY 06/29/19 07/01/19 History amLODIPine [Norvasc] 5 mg PO DAILY 06/29/19 07/01/19 History Allergies Allergy/AdvReac Type Severity Reaction Status Date / Time No Known Allergies Allergy Verified 07/01/19 19:35 Physical Exam Vitals: Vital Signs Temp Resp 07/02/19 08:00 10 L 07/02/19 07:00 10 L 07/02/19 05:43 12 07/02/19 03:30 14 07/02/19 00:50 16 07/02/19 00:44 100.3 F H 13 07/01/19 23:00 13 Intake and Output 07/01/19 07/02/19 07/02/19 22:59 06:59 14:59 Intake Total 0 Output Total 100 120 Balance 0 -100 -120 Intake: Oral 0 Output: Urine 100 120 Uretheral (Rodas) 120 Other: Voiding Method Indwelling Catheter Indwelling Catheter Weight 62.1 kg General: [non toxic], [no distress], [appears at stated age] Derm: [warm], [dry] Head: [atraumatic], [normocephalic], [symmetric] Mouth: [no lip lesion], [mucus membranes moist] Cardiovascular: [S1S2 reg], [tachycardic], [positive DP pulse bilateral] Lungs: [Agonal breathing], [diffuse rhonchi bilaterally] , [no accessory muscle use] Ext: [no gross muscle atrophy], [no edema], [no contractures] Neuro: [Unable to determine] Psych: [Unable to determine] Assessment and Plan Assessment: Acute hypoxic respiratory failure Sepsis secondary to community-acquired pneumonia, concerns for postobstructive pneumonia Hypertension Hypothyroidism Likely secondary to community-acquired pneumonia. As seen on chest x-ray, chest CT. Plans to pursue hospice, patient DNR/DNI. Plans: Consult hospice. Scopolamine and atropine for secretions. Morphine for air hunger. Plans: Management as above. BP 97/73. Plans: Plans to pursue comfort care. Plans: Plans to pursue comfort care. Family at bedside. Comfort care. Inpatient hospice. All questions answered.
[2019-07-02 14:16] VITALS: RESP 12
[2019-07-04] MEDS ORDERED: SCOPOLAMINE 1.5MG/72HR PATCH TRANSDERM SCH (05:00)
== END 2019-07-02 22:20 | disposition expired | DRG 951 ==
LOC: 4SSUR 19:09
PROVIDERS: ADMIT Internal Medicine; ATTEND Internal Medicine
DX: Z51.5 Encounter for palliative care (principal); J96.01 Acute respiratory failure with hypoxia; A41.9 Sepsis, unspecified organism; J18.1 Lobar pneumonia, unspecified organism; Z66 Do not resuscitate; I48.91 Unspecified atrial fibrillation; I44.0 Atrioventricular block, first degree; K21.9 Gastro-esophageal reflux disease without esophagitis; I10 Essential (primary) hypertension; G25.81 Restless legs syndrome; E03.9 Hypothyroidism, unspecified; Z79.82 Long term (current) use of aspirin; Z79.890 Hormone replacement therapy; Z79.899 Other long term (current) drug therapy; Z90.49 Acquired absence of other specified parts of digestive tract; Z87.19 Personal history of other diseases of the digestive system; W19.XXXA Unspecified fall, initial encounter; Y92.009 Unspecified place in unspecified non-institutional (private) residence as the place of occurrence of the external cause; Z83.3 Family history of diabetes mellitus